=== PATIENT | female | born 2005 | race Caucasian/White ===

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

== ENCOUNTER 2023-10-10 16:48 | Emergency (ER) | payer MEDICAID ==
[~2023-10-10] VITALS: Ht 154.9 cm; Wt 33.0 kg
[2023-10-10 17:16] VITALS: BP 123/84; PULSE 90; RESP 16; TEMP 98.9; O2SAT 98
[2023-10-10 17:42] LABS: BILIRUBIN,URINE SMALL (Neg); CLARITY,URINE CLOUDY (Clear); COLOR,URINE YELLOW (Yellow); GLUCOSE, URINE NEGATIVE (Neg); KETONES,URINE NEGATIVE (Neg); LEUKOCYTE ESTERASE ,URINE NEGATIVE (Neg); NITRITES, URINE POSITIVE (Neg); OCCULT BLOOD,URINE LARGE (Neg); PH,URINE 6.5 (4.8-8.0); PROTEIN,URINE TRACE mg/dl (Neg); UROBILINOGEN,URINE 0.2 E.U/dL (0.2-1.0)
[2023-10-10 17:49] LABS: UA COLLECTION TYPE CLN CATCH MIDSTREAM
[2023-10-10 17:51] LABS: BACTERIA,URINE 2+ /HPF (Neg); RBC,URINE TNTC /HPF (0-2); SQUAMOUS EPITHELIAL CELL,UR MANY /LPF (FEW)
[2023-10-10 17:52] LABS: MUCUS STRANDS FEW /LPF (Neg)
[2023-10-10] MEDS ORDERED: DOXY100T29 PO (18:14)
[2023-10-10] MEDS: CefTRIAXone 1000mg IM Kit (w/lidocaine diluent) IM ONE (18:53)
[2023-10-10] MEDS: ibuprofen tablet 400 MG TABLET PO ONE (19:11)
== END 2023-10-10 19:46 | disposition home or self-care (01) ==
LOC: ER 16:49
DX: A64 Unspecified sexually transmitted disease (principal); F41.9 Anxiety disorder, unspecified; F10.10 Alcohol abuse, uncomplicated; Y90.9 Presence of alcohol in blood, level not specified
CPT/HCPCS: 36415; 81001; 87210; 87491; 87591; 96372; 99283; J0696

== ENCOUNTER 2024-04-26 17:32 | Emergency (ER) | payer MEDICAID ==
[~2024-04-26] VITALS: Ht 157.5 cm; Wt 40.0 kg
[~2024-04-26 17:32] MED LIST changes: +DOXY100T29 PO
[2024-04-26 17:34] VITALS: BP 97/52; PULSE 76; RESP 16; TEMP 99; O2SAT 98
[2024-04-26] MEDS ORDERED: AZIT2.5D5 LEFTEYE (18:22)
[2024-04-26] MEDS: proparacaine 0.5% ophthalmic drops 15ml EACHEYE ONE (18:35)
== END 2024-04-26 18:46 | disposition home or self-care (01) ==
LOC: ER 17:33
DX: S05.02XA Injury of conjunctiva and corneal abrasion without foreign body, left eye, initial encounter (principal); F32.A Depression, unspecified; Z79.2 Long term (current) use of antibiotics; Z79.899 Other long term (current) drug therapy; W55.01XA Bitten by cat, initial encounter; Y93.89 Activity, other specified; Y92.89 Other specified places as the place of occurrence of the external cause; Y99.8 Other external cause status
CPT/HCPCS: 99283

== ENCOUNTER 2024-09-08 12:34 | Emergency (ER) | payer MEDICAID ==
[~2024-09-08] VITALS: Ht 157.5 cm; Wt 43.9 kg
[2024-09-08 12:34] VITALS: TEMP 98.2
[~2024-09-08 12:34] MED LIST changes: +AZIT2.5D5 LEFTEYE
[2024-09-08] MEDS: acetaminophen 325mg tablet PO STA (15:26)
[2024-09-08] MEDS: fluconazole 150mg tablet PO STA (15:26)
[2024-09-08] MEDS: ketorolac trometh 15mg/ml vial 15 MG/ML ML IV STA (15:27)
[2024-09-08] MEDS ORDERED: DIF150T PO (15:42)
[2024-09-08] MEDS ORDERED: NYST30CR35 TOP (15:42)
[2024-09-08 15:47] VITALS: BP 114/68; PULSE 74; RESP 14; O2SAT 99
== END 2024-09-08 15:49 | disposition home or self-care (01) ==
LOC: ER 12:34
DX: B37.31 Acute candidiasis of vulva and vagina (principal); F32.A Depression, unspecified; F10.10 Alcohol abuse, uncomplicated; Y90.9 Presence of alcohol in blood, level not specified
CPT/HCPCS: 96374; 99283; J1885

== ENCOUNTER 2024-10-17 07:35 | Inpatient (IN) | payer MEDICAID ==
[~2024-10-17] VITALS: Ht 157.5 cm; Wt 45.0 kg
[~2024-10-17 07:35] MED LIST changes: +DIF150T PO; +NYST30CR35 TOP
[2024-10-17 10:42] LABS: BASOPHILS % (AUTO) 0.1 % (0-1); EOSINOPHILS # (AUTO) 0.1 X10'3 (0-0.9); HEMATOCRIT 29.2 % (35.0-45.0); HEMOGLOBIN 9.7 g/dl (12.0-16.0); LYMPHOCYTES # (AUTO) 2.5 X10'3 (1.1-4.8); LYMPHOCYTES % (AUTO) 47.7 % (21-51); MEAN CORPUSCULAR HGB CONC 33.4 g/dL (33.0-36.5); MEAN CORPUSCULAR VOLUME 95.9 FL (78-98); MEAN PLATELET VOLUME 6.3 FL (7.4-10.4); MONOCYTES # (AUTO) 0.3 X10'3 (0-0.9); MONOCYTES % (AUTO) 5.5 % (2-12); NEUTROPHILS # (AUTO) 2.4 X10'3 (1.8-7.7); NEUTROPHILS % (AUTO) 45.7 % (42-75); PLATELET COUNT 404 X10'3 (140-440); RED BLOOD COUNT 3.04 X10'6 (4.20-5.60); RED CELL DISTRIBUTION WIDTH 21.3 % (11.5-14.5); WHITE BLOOD COUNT 5.2 X10'3 (4.5-11.0)
[2024-10-17 11:02] LABS: ANISOCYTOSIS 3+; MICROCYTOSIS 1+; PLATELET ESTIMATE NORMAL
[2024-10-17 11:03] LABS: TEAR DROP CELLS FEW
[2024-10-17 11:11] LABS: ALANINE AMINOTRANSFERASE 72 U/L (12-78); ALBUMIN 3.5 G/DL (3.4-5.0); ALBUMIN/GLOBULIN RATIO 0.8 (1.1-1.5); ALKALINE PHOSPHATASE 56 IU/L (46-116); ANION GAP 14 (8-16); ASPARTATE AMINO TRANSFERASE 31 U/L (10-37); BILIRUBIN,TOTAL 0.3 MG/DL (0.1-1.0); BLOOD UREA NITROGEN 15 MG/DL (7-18); BUN/CREATININE RATIO 26.3 (10.0-20.0); CALCIUM 8.6 MG/DL (8.5-10.1); CHLORIDE 112 MMOL/L (99-107); CREATININE 0.57 MG/DL (0.40-0.90); POTASSIUM 3.2 MMOL/L (3.5-5.1); SODIUM 147 MMOL/L (135-145); TOTAL CARBON DIOXIDE 21.4 MMOL/L (24-32); TOTAL PROTEIN 7.7 G/DL (6.4-8.2); eCRCL 111 ML/MIN; eGFR > 90 ML/MIN
[2024-10-17 11:13] LABS: GLUCOSE 84 MG/DL (70-104)
[2024-10-17] MEDS: ketorolac trometh 15mg/ml vial 15 MG/ML ML IV ONE (11:56)
[2024-10-17] MEDS: diazepam inj 5 MG/ML inj. IV ONE (11:56)
[2024-10-17] MEDS: normal saline 1000ml 1,000 ML IV ONE (11:57)
[2024-10-17] MEDS ORDERED: acetaminophen 325mg tablet PO PRN (12:50)
[2024-10-17] MEDS ORDERED: haloperidol 5mg tablet PO PRN (12:50)
[2024-10-17] MEDS ORDERED: potassium Cl 20 mEq SR tablet PO PRN (12:50)
[2024-10-17] MEDS ORDERED: ondansetron/PF 4mg/2ml inj IV PRN (12:50)
[2024-10-17] MEDS ORDERED: potassium Cl 40MEQ/1/2NS 520ml 520 ML IV PRN (12:50)
[2024-10-17] MEDS ORDERED: mag hydrox/Alum hydrox/simeth 30ml oral suspension PO PRN (12:50)
[2024-10-17] MEDS ORDERED: magnesium sulf-water 2g/50mL 50 ML IV PRN (12:50)
[2024-10-17] MEDS ORDERED: dextrose 50%-water 50ml dispensing syringe IV PRN (12:50)
[2024-10-17] MEDS ORDERED: LORazepam 2 mg/ml vial IV PRN (12:50)
[2024-10-17] MEDS ORDERED: magnesium sulf-water 4G/100mL 100 ML IV PRN (12:50)
[2024-10-17] MEDS ORDERED: magnesium Cl slow-release 64mg tablet PO PRN (12:50)
[2024-10-17] MEDS: thiamine 100mg/ml 2ml inj. IV SCH (13:12)
[2024-10-17] MEDS: normal saline 1000ml 1,000 ML IV SCH (13:15)
[2024-10-17 13:23] LABS: INR 1.1 INR; PROTHROMBIN TIME 11.4 SECONDS (9.0-12.0)
[2024-10-17 13:36] LABS: HCG SERUM QL NEGATIVE
[2024-10-17] MEDS: folic acid 1mg/0.2ml inj IV SCH (14:43)
[2024-10-17 16:48] LABS: FERRITIN 212 NG/ML (8-252)
[2024-10-17] MEDS ORDERED: FLUO40CA PO (17:45)
[2024-10-17] MEDS ORDERED: HYDR50TA65 PO (17:45)
[2024-10-17 18:00] VITALS: BP 98/65; PULSE 91; RESP 12; TEMP 98.4; O2SAT 95
[2024-10-17 18:04] LABS: % IRON SATURATION 12 % (11-46); IRON 22 UG/DL (49-151); TOTAL IRON BINDING CAPACITY 181 UG/DL (259-388)
[2024-10-17] MEDS: K and/or MAG REPLACEMENT MC SCH (20:00)
[2024-10-17] MEDS: potassium Cl 20 mEq SR tablet PO PRN (21:44)
[2024-10-17 22:00] VITALS: BP 98/65; PULSE 91; RESP 12; TEMP 98.4; O2SAT 95
[2024-10-17] MEDS: cyanocobalamin 1,000 mcg/ml inj IM SCH (22:20)
[2024-10-18 01:29] LABS: BILIRUBIN,URINE NEGATIVE (Neg); CLARITY,URINE SLIGHTLY CLOUDY (Clear); COLOR,URINE YELLOW (Yellow); GLUCOSE, URINE NEGATIVE (Neg); KETONES,URINE NEGATIVE (Neg); LEUKOCYTE ESTERASE ,URINE SMALL (Neg); NITRITES, URINE NEGATIVE (Neg); OCCULT BLOOD,URINE NEGATIVE (Neg); PROTEIN,URINE NEGATIVE (Neg); UROBILINOGEN,URINE 0.2 E.U/dL (0.2-1.0)
[2024-10-18 01:34] LABS: UA COLLECTION TYPE NON-SPECIFIED
[2024-10-18 01:40] LABS: SQUAMOUS EPITHELIAL CELL,UR FEW /LPF (FEW)
[2024-10-18 01:41] LABS: BACTERIA,URINE 2+ /HPF (Neg); RBC,URINE NONE SEEN /HPF (0-2)
[2024-10-18 01:44] LABS: HYALINE CASTS 0-3 /LPF (NEGATIVE); TRICHOMONAS,URINE FEW /HPF (NEGATIVE)
[2024-10-18 01:45] LABS: URINE AMPHETAMINE SCREEN NEGATIVE (Neg); URINE BARBITUATE SCREEN NEGATIVE (Neg); URINE BENZODIAZEPINES SCREEN NEGATIVE (Neg); URINE CANNABINOID SCREEN POSITIVE (Neg); URINE COCAINE SCREEN NEGATIVE (Neg); URINE METHADONE SCREEN NEGATIVE (Neg); URINE OPIATE SCREEN POSITIVE (Neg); URINE PHENCYCLIDINE SCREEN NEGATIVE (Neg)
[2024-10-18 02:20] VITALS: BP 96/48; PULSE 94; RESP 22; TEMP 97.6; O2SAT 100
[2024-10-18] MEDS: acetaminophen 325mg tablet PO PRN (05:22)
[2024-10-18 05:57] LABS: BASOPHILS % (AUTO) 0.2 % (0-1); EOSINOPHILS % (AUTO) 0.9 % (0-6); HEMATOCRIT 25.7 % (35.0-45.0); HEMOGLOBIN 8.7 g/dl (12.0-16.0); LYMPHOCYTES # (AUTO) 3.2 X10'3 (1.1-4.8); LYMPHOCYTES % (AUTO) 60.9 % (21-51); MEAN CORPUSCULAR HEMOGLOBIN 32.4 PG (27.0-31.0); MEAN CORPUSCULAR VOLUME 95.3 FL (78-98); MEAN PLATELET VOLUME 6.4 FL (7.4-10.4); MONOCYTES # (AUTO) 0.4 X10'3 (0-0.9); MONOCYTES % (AUTO) 8.3 % (2-12); NEUTROPHILS # (AUTO) 1.6 X10'3 (1.8-7.7); NEUTROPHILS % (AUTO) 29.7 % (42-75); PLATELET COUNT 382 X10'3 (140-440); RED CELL DISTRIBUTION WIDTH 21.6 % (11.5-14.5); WHITE BLOOD COUNT 5.3 X10'3 (4.5-11.0)
[2024-10-18 06:00] VITALS: BP 108/67; PULSE 85; RESP 14; TEMP 97.3; O2SAT 99
[2024-10-18 06:34] LABS: ALBUMIN 2.7 G/DL (3.4-5.0); ANION GAP 9 (8-16); BLOOD UREA NITROGEN 10 MG/DL (7-18); BUN/CREATININE RATIO 21.7 (10.0-20.0); CALCIUM 7.7 MG/DL (8.5-10.1); CHLORIDE 116 MMOL/L (99-107); CREATININE 0.46 MG/DL (0.40-0.90); GLUCOSE 91 MG/DL (70-104); MAGNESIUM 1.7 MG/DL (1.5-2.4); POTASSIUM 3.2 MMOL/L (3.5-5.1); SODIUM 146 MMOL/L (135-145); TOTAL CARBON DIOXIDE 20.8 MMOL/L (24-32); eCRCL 137 ML/MIN; eGFR > 90 ML/MIN
[2024-10-18 06:52] LABS: ANISOCYTOSIS 3+; PLATELET ESTIMATE NORMAL; TOTAL CELLS COUNTED 100
[2024-10-18 06:54] LABS: TEAR DROP CELLS FEW
[2024-10-18] MEDS: FLUoxetine 20mg capsule PO SCH (07:03)
[2024-10-18] MEDS: multivitamins, therapeutics tablet PO SCH (07:03)
[2024-10-18] MEDS: pantoprazole 40mg Tablet.DR PO SCH (07:03)
[2024-10-18 08:00] VITALS: RESP 18; O2SAT 100
[2024-10-18 10:00] VITALS: BP 101/58; RESP 17; TEMP 98.2; O2SAT 100
[2024-10-18] MEDS: nystatin/triamcinolone cream 15gm TP SCH (12:19)
[2024-10-18] MEDS: gabapentin 300mg capsule PO SCH (17:20)
[2024-10-18 18:00] VITALS: BP 107/64; PULSE 101; RESP 17; TEMP 98.2; O2SAT 99
[2024-10-18 18:10] LABS: HEMATOCRIT 27.1 % (35.0-45.0); HEMOGLOBIN 9.2 g/dl (12.0-16.0); MEAN CORPUSCULAR HEMOGLOBIN 32.4 PG (27.0-31.0); MEAN CORPUSCULAR HGB CONC 33.8 g/dL (33.0-36.5); MEAN CORPUSCULAR VOLUME 95.6 FL (78-98); MEAN PLATELET VOLUME 6.2 FL (7.4-10.4); PLATELET COUNT 409 X10'3 (140-440); RED BLOOD COUNT 2.84 X10'6 (4.20-5.60); RED CELL DISTRIBUTION WIDTH 21.9 % (11.5-14.5); WHITE BLOOD COUNT 5.8 X10'3 (4.5-11.0)
[2024-10-18] MEDS: GADOTERATE MEGLUMINE 7.5 MMOL/15 ML VIAL IV ONE (19:03)
[2024-10-18] MEDS: CefTRIAXone/D5W-Rocephin 1gm 50 ML IV ONE (19:49)
[2024-10-18] MEDS: ringers solution, lacted 1,000 ML IV SCH (21:21)
[2024-10-19] VITALS (7 sets, daily range): BP systolic 93–114; BP diastolic 46–68; PULSE 71–92; RESP 14–20; TEMP 97.2–98.6; O2SAT 92–100
[2024-10-19 04:58] LABS: BASOPHILS % (AUTO) 0.1 % (0-1); HEMATOCRIT 25.3 % (35.0-45.0); HEMOGLOBIN 8.7 g/dl (12.0-16.0); MEAN CORPUSCULAR HGB CONC 34.3 g/dL (33.0-36.5); NEUTROPHILS # (AUTO) 1.6 X10'3 (1.8-7.7); RED CELL DISTRIBUTION WIDTH 21.9 % (11.5-14.5)
[2024-10-19 04:59] LABS: EOSINOPHILS % (AUTO) 0.6 % (0-6); LYMPHOCYTES # (AUTO) 3.1 X10'3 (1.1-4.8); LYMPHOCYTES % (AUTO) 54.1 % (21-51); MEAN CORPUSCULAR HEMOGLOBIN 32.9 PG (27.0-31.0); MEAN CORPUSCULAR VOLUME 95.9 FL (78-98); MEAN PLATELET VOLUME 6.2 FL (7.4-10.4); MONOCYTES % (AUTO) 17.9 % (2-12); NEUTROPHILS % (AUTO) 27.3 % (42-75); PLATELET COUNT 414 X10'3 (140-440); RED BLOOD COUNT 2.64 X10'6 (4.20-5.60); WHITE BLOOD COUNT 5.8 X10'3 (4.5-11.0)
[2024-10-19 05:10] LABS: ALBUMIN 2.9 G/DL (3.4-5.0); ANION GAP 5 (8-16); BLOOD UREA NITROGEN 5 MG/DL (7-18); CALCIUM 8.2 MG/DL (8.5-10.1); CHLORIDE 113 MMOL/L (99-107); GLUCOSE 96 MG/DL (70-104); MAGNESIUM 1.9 MG/DL (1.5-2.4); POTASSIUM 3.9 MMOL/L (3.5-5.1); SODIUM 145 MMOL/L (135-145); TOTAL CARBON DIOXIDE 27.2 MMOL/L (24-32); eCRCL 126 ML/MIN; eGFR > 90 ML/MIN
[2024-10-19 05:17] LABS: TOTAL CELLS COUNTED 100
[2024-10-19] MEDS: CefTRIAXone/D5W-Rocephin 1gm 50 ML IV SCH (07:56)
[2024-10-19 18:54] LABS: HEMATOCRIT 27.5 % (35.0-45.0); HEMOGLOBIN 9.3 g/dl (12.0-16.0); MEAN CORPUSCULAR HEMOGLOBIN 32.9 PG (27.0-31.0); MEAN CORPUSCULAR HGB CONC 33.9 g/dL (33.0-36.5); MEAN CORPUSCULAR VOLUME 96.9 FL (78-98); MEAN PLATELET VOLUME 6.1 FL (7.4-10.4); PLATELET COUNT 410 X10'3 (140-440); RED BLOOD COUNT 2.84 X10'6 (4.20-5.60); RED CELL DISTRIBUTION WIDTH 23.1 % (11.5-14.5); WHITE BLOOD COUNT 6.5 X10'3 (4.5-11.0)
[2024-10-19] MEDS: LORazepam 1 MG tablet PO PRN (21:52)
[2024-10-20 04:53] LABS: HEMOGLOBIN 9.3 g/dl (12.0-16.0); RED BLOOD COUNT 2.87 X10'6 (4.20-5.60)
[2024-10-20 04:55] LABS: HEMATOCRIT 27.7 % (35.0-45.0); MEAN CORPUSCULAR HEMOGLOBIN 32.6 PG (27.0-31.0); MEAN CORPUSCULAR HGB CONC 33.7 g/dL (33.0-36.5); MEAN CORPUSCULAR VOLUME 96.6 FL (78-98); PLATELET COUNT 405 X10'3 (140-440); RED CELL DISTRIBUTION WIDTH 22.8 % (11.5-14.5); WHITE BLOOD COUNT 7.2 X10'3 (4.5-11.0)
[2024-10-20 05:11] LABS: ALBUMIN 2.9 G/DL (3.4-5.0); BLOOD UREA NITROGEN 10 MG/DL (7-18); BUN/CREATININE RATIO 22.7 (10.0-20.0); CALCIUM 8.5 MG/DL (8.5-10.1); CREATININE 0.44 MG/DL (0.40-0.90); GLUCOSE 92 MG/DL (70-104); MAGNESIUM 2.1 MG/DL (1.5-2.4); SODIUM 145 MMOL/L (135-145); TOTAL CARBON DIOXIDE 32.7 MMOL/L (24-32); eCRCL 144 ML/MIN; eGFR > 90 ML/MIN
[2024-10-20 05:13] LABS: CHLAMYDIA TRACHOMATIS, NAA Negative (Negative)
[2024-10-20 05:17] LABS: NUCLEATED RED BLOOD CELLS 1 /100WBC (0-0); TOTAL CELLS COUNTED 100
[2024-10-20 05:22] LABS: ANION GAP 3 (8-16); CHLORIDE 109 MMOL/L (99-107)
[2024-10-20 06:00] VITALS: BP 93/58; PULSE 86; RESP 16; TEMP 98.8; O2SAT 96
[2024-10-20 08:00] VITALS: RESP 17; O2SAT 98
[2024-10-20 10:00] VITALS: BP 112/64; PULSE 97; RESP 16; TEMP 97.8; O2SAT 96
[2024-10-20 18:00] VITALS: BP 102/46; PULSE 75; RESP 17; TEMP 98.2; O2SAT 92
[2024-10-20] MEDS: LORazepam 1 MG tablet PO PRN (19:46)
[2024-10-20 20:00] VITALS: RESP 17; O2SAT 92
[2024-10-20] MEDS: haloperidol lactate 5mg/ml inj IM PRN (20:14)
[2024-10-21] VITALS (17 sets, daily range): BP systolic 96–109; BP diastolic 41–68; PULSE 66–119; RESP 13–18; TEMP 97.7–99.2; O2SAT 92–100
[2024-10-21 05:14] LABS: BASOPHILS % (AUTO) 0.1 % (0-1); HEMOGLOBIN 9.8 g/dl (12.0-16.0); MONOCYTES # (AUTO) 1.4 X10'3 (0-0.9)
[2024-10-21 05:16] LABS: EOSINOPHILS % (AUTO) 0.6 % (0-6); HEMATOCRIT 29.5 % (35.0-45.0); LYMPHOCYTES # (AUTO) 2.6 X10'3 (1.1-4.8); LYMPHOCYTES % (AUTO) 42.9 % (21-51); MEAN CORPUSCULAR HEMOGLOBIN 32.5 PG (27.0-31.0); MEAN CORPUSCULAR HGB CONC 33.3 g/dL (33.0-36.5); MEAN CORPUSCULAR VOLUME 97.6 FL (78-98); MEAN PLATELET VOLUME 6.2 FL (7.4-10.4); MONOCYTES % (AUTO) 22.6 % (2-12); NEUTROPHILS % (AUTO) 33.8 % (42-75); PLATELET COUNT 364 X10'3 (140-440); RED BLOOD COUNT 3.02 X10'6 (4.20-5.60); RED CELL DISTRIBUTION WIDTH 25.8 % (11.5-14.5)
[2024-10-21 05:17] LABS: FOLATE SERUM(FOLIC) >20.0 ng/mL (>3.0)
[2024-10-21 05:31] LABS: ALBUMIN 3.2 G/DL (3.4-5.0); ANION GAP 8 (8-16); BLOOD UREA NITROGEN 11 MG/DL (7-18); BUN/CREATININE RATIO 21.6 (10.0-20.0); CALCIUM 8.6 MG/DL (8.5-10.1); CHLORIDE 106 MMOL/L (99-107); CREATININE 0.51 MG/DL (0.40-0.90); GLUCOSE 79 MG/DL (70-104); MAGNESIUM 2.4 MG/DL (1.5-2.4); SODIUM 146 MMOL/L (135-145); eCRCL 124 ML/MIN; eGFR > 90 ML/MIN
[2024-10-21 06:29] LABS: TOTAL CELLS COUNTED 100
[2024-10-21 06:30] LABS: ANISOCYTOSIS 3+; PLATELET ESTIMATE NORMAL; SCHISTOCYTES FEW
[2024-10-21] MEDS ORDERED: diazepam inj 5 MG/ML inj. IV PRN (07:50)
[2024-10-21] MEDS: folic acid 1mg tablet PO SCH (08:24)
[2024-10-21] MEDS: midazolam 1 mg/ML 2ml injection ONE (18:54)
[2024-10-21] MEDS: fentaNYL/PF 50MCG/1 ML 2ML syringe ONE (18:56)
[2024-10-21 20:31] LABS: APPEARANCE,CSF CLEAR; CSF SUPERNATANT COLOR COLORLESS; CSF VOLUME 6 ML
[2024-10-21 20:32] LABS: CSF RBC 0 /CU MM (0); CSF WBC CT 2 /CU MM (0-5); TUBE# COUNTED 2
[2024-10-21 20:47] LABS: GLUCOSE,CSF 52 MG/DL (40-75); TOTAL PROTEIN,CSF 57 MG/DL (15-45)
[2024-10-22] MEDS: hydrOXYzine 25 MG tablet PO PRN (01:48)
[2024-10-22 02:00] VITALS: BP 104/53; PULSE 113; RESP 18; TEMP 98.1; O2SAT 97
[2024-10-22] MEDS: baclofen 10mg tablet PO PRN (03:01)
[2024-10-22 06:20] LABS: ALBUMIN 2.9 G/DL (3.4-5.0); ANION GAP 7 (8-16); BLOOD UREA NITROGEN 11 MG/DL (7-18); CALCIUM 8.2 MG/DL (8.5-10.1); CHLORIDE 109 MMOL/L (99-107); CREATININE 0.58 MG/DL (0.40-0.90); EOSINOPHILS # (AUTO) 0.1 X10'3 (0-0.9); GLUCOSE 133 MG/DL (70-104); HEMOGLOBIN 9.1 g/dl (12.0-16.0); MAGNESIUM 2.3 MG/DL (1.5-2.4); MEAN PLATELET VOLUME 6.7 FL (7.4-10.4); MONOCYTES # (AUTO) 1.5 X10'3 (0-0.9); POTASSIUM 4.2 MMOL/L (3.5-5.1); SODIUM 145 MMOL/L (135-145); TOTAL CARBON DIOXIDE 29.5 MMOL/L (24-32); WHITE BLOOD COUNT 5.9 X10'3 (4.5-11.0); eCRCL 109 ML/MIN; eGFR > 90 ML/MIN
[2024-10-22 06:24] LABS: BASOPHILS % (AUTO) 0.1 % (0-1); EOSINOPHILS % (AUTO) 1.1 % (0-6); HEMATOCRIT 27.9 % (35.0-45.0); LYMPHOCYTES # (AUTO) 2.1 X10'3 (1.1-4.8); MEAN CORPUSCULAR HEMOGLOBIN 32.3 PG (27.0-31.0); MEAN CORPUSCULAR HGB CONC 32.7 g/dL (33.0-36.5); MEAN CORPUSCULAR VOLUME 98.5 FL (78-98); MONOCYTES % (AUTO) 24.8 % (2-12); NEUTROPHILS # (AUTO) 2.3 X10'3 (1.8-7.7); PLATELET COUNT 348 X10'3 (140-440); RED BLOOD COUNT 2.83 X10'6 (4.20-5.60); RED CELL DISTRIBUTION WIDTH 24.5 % (11.5-14.5)
[2024-10-22 07:29] LABS: ANISOCYTOSIS 3+; PLATELET ESTIMATE NORMAL; TOTAL CELLS COUNTED 100
[2024-10-22 08:00] VITALS: RESP 18; O2SAT 99
[2024-10-22] MEDS ORDERED: cyanocobalamin 500mcg tablet PO SCH (08:00)
[2024-10-22] MEDS: thiamine 100mg tablet PO SCH (10:17)
[2024-10-22 14:00] VITALS: RESP 16
[2024-10-22 18:00] VITALS: BP_SYST 113; BP_SYST 99; BP_DIAS 58; BP_DIAS 64; PULSE 77; PULSE 95; RESP 15; RESP 20; TEMP 98.5; TEMP 98.8; O2SAT 97; O2SAT 99
[2024-10-22] MEDS: gabapentin 300mg capsule PO SCH (19:40)
[2024-10-22] MEDS: nicotine 7mg patch - 24hr TD SCH (19:41)
[2024-10-22 20:00] VITALS: RESP 20; O2SAT 99
[2024-10-22 22:00] VITALS: BP 113/64; PULSE 95; RESP 20; TEMP 98.5; O2SAT 99
[2024-10-22 23:30] LABS: BILIRUBIN,URINE NEGATIVE (Neg); CLARITY,URINE SLIGHTLY CLOUDY (Clear); COLOR,URINE YELLOW (Yellow); GLUCOSE, URINE NEGATIVE (Neg); KETONES,URINE NEGATIVE (Neg); LEUKOCYTE ESTERASE ,URINE LARGE (Neg); NITRITES, URINE NEGATIVE (Neg); OCCULT BLOOD,URINE NEGATIVE (Neg); PROTEIN,URINE NEGATIVE (Neg); UROBILINOGEN,URINE 0.2 E.U/dL (0.2-1.0)
[2024-10-22 23:49] LABS: UA COLLECTION TYPE CLN CATCH MIDSTREAM
[2024-10-22 23:50] LABS: RBC,URINE NONE SEEN /HPF (0-2)
[2024-10-22 23:51] LABS: BACTERIA,URINE FEW /HPF (Neg); SQUAMOUS EPITHELIAL CELL,UR MODERATE /LPF (FEW)
[2024-10-23] MEDS: phenazopyridine 100mg tablet PO ONE (03:43)
[2024-10-23 04:45] LABS: OCCULT BLOOD STOOL NEGATIVE (Neg)
[2024-10-23 06:00] VITALS: BP 110/60; PULSE 72; RESP 20; TEMP 98; O2SAT 98
[2024-10-23] MEDS ORDERED: nicotine 7mg patch - 24hr TD SCH (08:00)
[2024-10-23] MEDS ORDERED: cyanocobalamin 1,000 mcg/ml inj IM SCH (08:00)
[2024-10-23 08:35] VITALS: RESP 20; O2SAT 98
[2024-10-23 14:11] VITALS: BP 117/67; PULSE 95; RESP 16; TEMP 98.5
[2024-10-23] MEDS: polyethylene glycol 3350 17gm powd pack PO ONE (15:12)
[2024-10-23] MEDS: cyanocobalamin 500mcg tablet PO SCH (15:13)
[2024-10-23 18:00] VITALS: BP 108/59; PULSE 106; RESP 16; TEMP 97.8; O2SAT 98
[2024-10-23] MEDS: gabapentin 300mg capsule PO SCH (19:58)
[2024-10-23 20:00] VITALS: RESP 16; O2SAT 98
[2024-10-23 22:00] VITALS: BP 105/61; PULSE 80; RESP 18; TEMP 98.6; O2SAT 98
[2024-10-23] MEDS: ketorolac trometh 15mg/ml vial 15 MG/ML ML IV ONE (22:56)
[2024-10-24 05:00] VITALS: BP 103/54; PULSE 90; RESP 18; TEMP 98.3; O2SAT 96
[2024-10-24 05:57] LABS: BASOPHILS % (AUTO) 0.3 % (0-1); EOSINOPHILS # (AUTO) 0.1 X10'3 (0-0.9); EOSINOPHILS % (AUTO) 1.8 % (0-6); HEMATOCRIT 30.5 % (35.0-45.0); HEMOGLOBIN 9.9 g/dl (12.0-16.0); LYMPHOCYTES % (AUTO) 44.2 % (21-51); MEAN CORPUSCULAR HEMOGLOBIN 31.2 PG (27.0-31.0); MEAN CORPUSCULAR HGB CONC 32.3 g/dL (33.0-36.5); MEAN CORPUSCULAR VOLUME 96.6 FL (78-98); MEAN PLATELET VOLUME 6.6 FL (7.4-10.4); MONOCYTES % (AUTO) 14.3 % (2-12); NEUTROPHILS # (AUTO) 2.6 X10'3 (1.8-7.7); NEUTROPHILS % (AUTO) 39.4 % (42-75); PLATELET COUNT 366 X10'3 (140-440); RED BLOOD COUNT 3.16 X10'6 (4.20-5.60); RED CELL DISTRIBUTION WIDTH 21.8 % (11.5-14.5); WHITE BLOOD COUNT 6.7 X10'3 (4.5-11.0)
[2024-10-24 06:22] LABS: TOTAL CELLS COUNTED 100
[2024-10-24 06:23] LABS: ANISOCYTOSIS 3+; LARGE PLATELETS FEW; PLATELET ESTIMATE NORMAL
[2024-10-24 06:26] LABS: ALANINE AMINOTRANSFERASE 23 U/L (12-78); ALBUMIN 2.9 G/DL (3.4-5.0); ALBUMIN/GLOBULIN RATIO 0.7 (1.1-1.5); ALKALINE PHOSPHATASE 47 IU/L (46-116); ANION GAP 8 (8-16); ASPARTATE AMINO TRANSFERASE 17 U/L (10-37); BILIRUBIN,TOTAL 0.2 MG/DL (0.1-1.0); BLOOD UREA NITROGEN 7 MG/DL (7-18); BUN/CREATININE RATIO 14.9 (10.0-20.0); CALCIUM 8.7 MG/DL (8.5-10.1); CHLORIDE 107 MMOL/L (99-107); CREATININE 0.47 MG/DL (0.40-0.90); GLUCOSE 93 MG/DL (70-104); POTASSIUM 4.2 MMOL/L (3.5-5.1); SODIUM 143 MMOL/L (135-145); TOTAL CARBON DIOXIDE 27.7 MMOL/L (24-32); eCRCL 135 ML/MIN; eGFR > 90 ML/MIN
[2024-10-24 08:00] VITALS: RESP 12; O2SAT 97
[2024-10-24 11:00] VITALS: BP 95/56; PULSE 75; RESP 17; TEMP 98.8; O2SAT 97
[2024-10-24] MEDS: LIDOcaine 5% patch TP SCH (16:50)
[2024-10-24] MEDS: baclofen 10mg tablet PO PRN (17:14)
[2024-10-24] MEDS: magnesium hydroxide 30ml (MOM) UD suspension PO PRN (17:24)
[2024-10-24 18:00] VITALS: BP 110/65; PULSE 85; RESP 22; TEMP 98.2; O2SAT 97
[2024-10-24 20:00] VITALS: RESP 22; O2SAT 97
[2024-10-24] MEDS: polyethylene glycol 3350 17gm powd pack PO SCH (20:16)
[2024-10-24] MEDS: heparin, porcine 5000 units/ml vial SQ SCH (20:18)
[2024-10-24 22:00] VITALS: BP 101/65; PULSE 74; RESP 15; TEMP 98.7; O2SAT 98
[2024-10-24] MEDS: Melatonin 3mg tablet PO PRN (23:28)
[2024-10-24] MEDS: morphine 2 MG/ML inj. syringe IV ONE (23:30)
[2024-10-25 05:25] LABS: BASOPHILS % (AUTO) 0.3 % (0-1); EOSINOPHILS # (AUTO) 0.1 X10'3 (0-0.9); EOSINOPHILS % (AUTO) 1.2 % (0-6); HEMATOCRIT 31.1 % (35.0-45.0); HEMOGLOBIN 10.3 g/dl (12.0-16.0); LYMPHOCYTES # (AUTO) 3.3 X10'3 (1.1-4.8); LYMPHOCYTES % (AUTO) 34.8 % (21-51); MEAN CORPUSCULAR HEMOGLOBIN 31.6 PG (27.0-31.0); MEAN CORPUSCULAR VOLUME 95.9 FL (78-98); MEAN PLATELET VOLUME 6.5 FL (7.4-10.4); MONOCYTES # (AUTO) 1.3 X10'3 (0-0.9); MONOCYTES % (AUTO) 13.2 % (2-12); NEUTROPHILS # (AUTO) 4.8 X10'3 (1.8-7.7); NEUTROPHILS % (AUTO) 50.5 % (42-75); PLATELET COUNT 419 X10'3 (140-440); RED BLOOD COUNT 3.24 X10'6 (4.20-5.60); RED CELL DISTRIBUTION WIDTH 21.9 % (11.5-14.5); WHITE BLOOD COUNT 9.5 X10'3 (4.5-11.0)
[2024-10-25 06:00] VITALS: BP 100/58; PULSE 85; RESP 18; TEMP 98; O2SAT 98
[2024-10-25 06:10] LABS: ALANINE AMINOTRANSFERASE 23 U/L (12-78); ALBUMIN/GLOBULIN RATIO 0.7 (1.1-1.5); ALKALINE PHOSPHATASE 50 IU/L (46-116); ANION GAP 6 (8-16); ASPARTATE AMINO TRANSFERASE 14 U/L (10-37); BILIRUBIN,TOTAL 0.2 MG/DL (0.1-1.0); BLOOD UREA NITROGEN 9 MG/DL (7-18); BUN/CREATININE RATIO 18.8 (10.0-20.0); CALCIUM 8.8 MG/DL (8.5-10.1); CHLORIDE 106 MMOL/L (99-107); CREATININE 0.48 MG/DL (0.40-0.90); GLUCOSE 107 MG/DL (70-104); POTASSIUM 4.2 MMOL/L (3.5-5.1); SODIUM 143 MMOL/L (135-145); TOTAL CARBON DIOXIDE 30.7 MMOL/L (24-32); TOTAL PROTEIN 7.3 G/DL (6.4-8.2); eCRCL 132 ML/MIN; eGFR > 90 ML/MIN
[2024-10-25 08:00] VITALS: RESP 16; O2SAT 98
[2024-10-25 10:00] VITALS: BP 109/63; PULSE 83; RESP 16; TEMP 98.3; O2SAT 98
[2024-10-25] MEDS: gabapentin 300mg capsule PO ONE (15:42)
[2024-10-25] MEDS: cyanocobalamin 1,000 mcg/ml inj IM SCH (15:57)
[2024-10-25] MEDS: LIDOcaine 5% patch TP SCH (16:05)
[2024-10-25 18:00] VITALS: BP 118/66; PULSE 89; RESP 18; TEMP 99.2; O2SAT 99
[2024-10-25] MEDS: gabapentin 300mg capsule PO SCH (20:02)
[2024-10-25] MEDS: Melatonin 3mg tablet PO PRN (20:15)
[2024-10-25 22:00] VITALS: BP 103/63; PULSE 81; RESP 17; TEMP 99.3; O2SAT 98
[2024-10-26 04:51] LABS: BASOPHILS % (AUTO) 0.5 % (0-1); EOSINOPHILS # (AUTO) 0.1 X10'3 (0-0.9); HEMOGLOBIN 10.3 g/dl (12.0-16.0); LYMPHOCYTES # (AUTO) 3.4 X10'3 (1.1-4.8); MEAN CORPUSCULAR HEMOGLOBIN 30.8 PG (27.0-31.0); MEAN CORPUSCULAR HGB CONC 32.2 g/dL (33.0-36.5); MEAN CORPUSCULAR VOLUME 95.9 FL (78-98); MEAN PLATELET VOLUME 6.4 FL (7.4-10.4); MONOCYTES % (AUTO) 11.2 % (2-12); NEUTROPHILS # (AUTO) 4.8 X10'3 (1.8-7.7); NEUTROPHILS % (AUTO) 51.3 % (42-75); PLATELET COUNT 398 X10'3 (140-440); RED BLOOD COUNT 3.34 X10'6 (4.20-5.60); RED CELL DISTRIBUTION WIDTH 21.6 % (11.5-14.5); WHITE BLOOD COUNT 9.3 X10'3 (4.5-11.0)
[2024-10-26 05:17] LABS: ALANINE AMINOTRANSFERASE 18 U/L (12-78); ALBUMIN/GLOBULIN RATIO 0.7 (1.1-1.5); ALKALINE PHOSPHATASE 50 IU/L (46-116); ANION GAP 8 (8-16); ASPARTATE AMINO TRANSFERASE 13 U/L (10-37); BILIRUBIN,TOTAL 0.3 MG/DL (0.1-1.0); BLOOD UREA NITROGEN 6 MG/DL (7-18); CALCIUM 8.8 MG/DL (8.5-10.1); CHLORIDE 105 MMOL/L (99-107); GLUCOSE 91 MG/DL (70-104); POTASSIUM 4.1 MMOL/L (3.5-5.1); SODIUM 139 MMOL/L (135-145); TOTAL CARBON DIOXIDE 26.5 MMOL/L (24-32); TOTAL PROTEIN 7.4 G/DL (6.4-8.2); eCRCL 158 ML/MIN; eGFR > 90 ML/MIN
[2024-10-26 06:00] VITALS: BP 99/56; PULSE 64; RESP 14; TEMP 98.2; O2SAT 99
[2024-10-26 08:00] VITALS: RESP 14; O2SAT 99
[2024-10-26 10:00] VITALS: BP 122/71; PULSE 74; RESP 18; TEMP 98.4; O2SAT 99
[2024-10-26] MEDS: polyethylene glycol 3350 17gm powd pack PO ONE (11:42)
[2024-10-26 15:11] LABS: IMMUNOGLOBULIN G, QN CSF 2.2 mg/dL (0.0-6.7)
[2024-10-26 18:00] VITALS: BP 110/69; PULSE 77; RESP 14; TEMP 98.4; O2SAT 100
[2024-10-26] MEDS: docusate sod 100mg capsule PO SCH (20:44)
[2024-10-26] MEDS: morphine 2 MG/ML inj. syringe IV ONE (20:46)
[2024-10-26 22:00] VITALS: BP 105/59; PULSE 90; RESP 20; TEMP 98.5; O2SAT 97
[2024-10-27 06:00] VITALS: BP 96/49; PULSE 89; RESP 15; TEMP 98.6; O2SAT 98
[2024-10-27 06:28] LABS: BASOPHILS # (AUTO) 0.1 X10'3 (0-0.2); BASOPHILS % (AUTO) 0.7 % (0-1); EOSINOPHILS # (AUTO) 0.1 X10'3 (0-0.9); HEMATOCRIT 30.6 % (35.0-45.0); HEMOGLOBIN 10.1 g/dl (12.0-16.0); LYMPHOCYTES # (AUTO) 3.2 X10'3 (1.1-4.8); LYMPHOCYTES % (AUTO) 34.9 % (21-51); MEAN CORPUSCULAR HEMOGLOBIN 31.6 PG (27.0-31.0); MEAN CORPUSCULAR HGB CONC 32.9 g/dL (33.0-36.5); MEAN CORPUSCULAR VOLUME 95.9 FL (78-98); MEAN PLATELET VOLUME 6.9 FL (7.4-10.4); MONOCYTES # (AUTO) 1.2 X10'3 (0-0.9); MONOCYTES % (AUTO) 12.8 % (2-12); NEUTROPHILS # (AUTO) 4.6 X10'3 (1.8-7.7); NEUTROPHILS % (AUTO) 50.6 % (42-75); PLATELET COUNT 412 X10'3 (140-440); RED BLOOD COUNT 3.19 X10'6 (4.20-5.60); RED CELL DISTRIBUTION WIDTH 21.2 % (11.5-14.5); WHITE BLOOD COUNT 9.1 X10'3 (4.5-11.0)
[2024-10-27 07:31] LABS: ALANINE AMINOTRANSFERASE 22 U/L (12-78); ALBUMIN 2.8 G/DL (3.4-5.0); ALBUMIN/GLOBULIN RATIO 0.7 (1.1-1.5); ALKALINE PHOSPHATASE 49 IU/L (46-116); ANION GAP 9 (8-16); ASPARTATE AMINO TRANSFERASE 10 U/L (10-37); BILIRUBIN,TOTAL 0.2 MG/DL (0.1-1.0); BLOOD UREA NITROGEN 8 MG/DL (7-18); CALCIUM 8.4 MG/DL (8.5-10.1); CHLORIDE 106 MMOL/L (99-107); GLUCOSE 120 MG/DL (70-104); POTASSIUM 3.8 MMOL/L (3.5-5.1); SODIUM 141 MMOL/L (135-145); TOTAL CARBON DIOXIDE 26.5 MMOL/L (24-32); TOTAL PROTEIN 7.1 G/DL (6.4-8.2); eCRCL 158 ML/MIN; eGFR > 90 ML/MIN
[2024-10-27 10:00] VITALS: BP 129/89; PULSE 98; RESP 18; TEMP 97.9; O2SAT 97
[2024-10-27] MEDS: ibuprofen 200mg tablet PO PRN (12:34)
[2024-10-27] MEDS: polyethylene glycol 3350 17gm powd pack PO ONE (12:53)
[2024-10-27 22:00] VITALS: BP 116/62; PULSE 60; RESP 16; TEMP 98.2; O2SAT 93
[2024-10-28 05:36] LABS: BASOPHILS # (AUTO) 0.1 X10'3 (0-0.2); BASOPHILS % (AUTO) 1.2 % (0-1); EOSINOPHILS # (AUTO) 0.1 X10'3 (0-0.9); EOSINOPHILS % (AUTO) 1.5 % (0-6); HEMATOCRIT 30.2 % (35.0-45.0); HEMOGLOBIN 10.7 g/dl (12.0-16.0); LYMPHOCYTES # (AUTO) 3.1 X10'3 (1.1-4.8); LYMPHOCYTES % (AUTO) 34.8 % (21-51); MEAN CORPUSCULAR HEMOGLOBIN 34.4 PG (27.0-31.0); MEAN CORPUSCULAR HGB CONC 35.5 g/dL (33.0-36.5); MEAN CORPUSCULAR VOLUME 96.8 FL (78-98); MEAN PLATELET VOLUME 7.4 FL (7.4-10.4); MONOCYTES % (AUTO) 11.3 % (2-12); NEUTROPHILS # (AUTO) 4.6 X10'3 (1.8-7.7); NEUTROPHILS % (AUTO) 51.2 % (42-75); PLATELET COUNT 444 X10'3 (140-440); RED BLOOD COUNT 3.12 X10'6 (4.20-5.60); RED CELL DISTRIBUTION WIDTH 21.1 % (11.5-14.5); WHITE BLOOD COUNT 8.9 X10'3 (4.5-11.0)
[2024-10-28 05:43] LABS: TOTAL CARBON DIOXIDE 23.2 MMOL/L (24-32)
[2024-10-28 06:00] VITALS: BP 98/52; PULSE 111; RESP 16; TEMP 97.5; O2SAT 98
[2024-10-28 06:11] LABS: ALBUMIN 2.6 G/DL (3.4-5.0); ALKALINE PHOSPHATASE 57 IU/L (46-116); BLOOD UREA NITROGEN 9 MG/DL (7-18); BUN/CREATININE RATIO 19.1 (10.0-20.0); CREATININE 0.47 MG/DL (0.40-0.90); eCRCL 135 ML/MIN; eGFR > 90 ML/MIN
[2024-10-28 06:27] LABS: ANISOCYTOSIS 3+; PLATELET ESTIMATE INCREASED; POLYCHROMASIA 1+
[2024-10-28 06:29] LABS: ELLIPTOCYTES FEW; TEAR DROP CELLS FEW
[2024-10-28 06:39] LABS: ALANINE AMINOTRANSFERASE 38 U/L (12-78); ALBUMIN/GLOBULIN RATIO 0.6 (1.1-1.5); ANION GAP 10 (8-16); ASPARTATE AMINO TRANSFERASE 29 U/L (10-37); BILIRUBIN,TOTAL 0.1 MG/DL (0.1-1.0); CALCIUM 8.2 MG/DL (8.5-10.1); CHLORIDE 109 MMOL/L (99-107); GLUCOSE 114 MG/DL (70-104); POTASSIUM 3.9 MMOL/L (3.5-5.1); SODIUM 142 MMOL/L (135-145); TOTAL PROTEIN 6.7 G/DL (6.4-8.2)
[2024-10-28 18:03] VITALS: RESP 16; O2SAT 99
[2024-10-28] MEDS: magnesium oxide 400mg tablet PO SCH (20:53)
[2024-10-28 22:00] VITALS: BP 128/84; PULSE 64; RESP 20; TEMP 98.3; O2SAT 98
[2024-10-29 06:00] VITALS: BP 93/52; PULSE 71; RESP 20; TEMP 97.8; O2SAT 99
[2024-10-29] MEDS: bisacodyl 5mg tablet.DR PO PRN (12:23)
[2024-10-29 17:02] VITALS: RESP 16; O2SAT 98
[2024-10-29 20:00] VITALS: RESP 16; O2SAT 98
[2024-10-30 06:00] VITALS: BP 91/48; PULSE 68; RESP 20; TEMP 98.4; O2SAT 99
[2024-10-30 08:00] VITALS: RESP 18; O2SAT 97
[2024-10-30 09:05] LABS: BASOPHILS # (AUTO) 0.1 X10'3 (0-0.2); BASOPHILS % (AUTO) 0.4 % (0-1); EOSINOPHILS # (AUTO) 0.1 X10'3 (0-0.9); EOSINOPHILS % (AUTO) 0.5 % (0-6); HEMATOCRIT 32.9 % (35.0-45.0); HEMOGLOBIN 10.8 g/dl (12.0-16.0); LYMPHOCYTES # (AUTO) 1.9 X10'3 (1.1-4.8); LYMPHOCYTES % (AUTO) 8.7 % (21-51); MEAN CORPUSCULAR HEMOGLOBIN 31.2 PG (27.0-31.0); MEAN CORPUSCULAR VOLUME 94.5 FL (78-98); MEAN PLATELET VOLUME 6.9 FL (7.4-10.4); MONOCYTES # (AUTO) 2.1 X10'3 (0-0.9); MONOCYTES % (AUTO) 9.6 % (2-12); NEUTROPHILS # (AUTO) 18.1 X10'3 (1.8-7.7); NEUTROPHILS % (AUTO) 80.8 % (42-75); PLATELET COUNT 541 X10'3 (140-440); RED BLOOD COUNT 3.48 X10'6 (4.20-5.60); WHITE BLOOD COUNT 22.3 X10'3 (4.5-11.0)
[2024-10-30 09:13] LABS: ALANINE AMINOTRANSFERASE 62 U/L (12-78); ALBUMIN 3.3 G/DL (3.4-5.0); ALBUMIN/GLOBULIN RATIO 0.7 (1.1-1.5); ALKALINE PHOSPHATASE 60 IU/L (46-116); ANION GAP 11 (8-16); ASPARTATE AMINO TRANSFERASE 37 U/L (10-37); BILIRUBIN,TOTAL 0.5 MG/DL (0.1-1.0); BLOOD UREA NITROGEN 14 MG/DL (7-18); BUN/CREATININE RATIO 29.2 (10.0-20.0); CALCIUM 9.1 MG/DL (8.5-10.1); CHLORIDE 100 MMOL/L (99-107); CREATININE 0.48 MG/DL (0.40-0.90); GLUCOSE 104 MG/DL (70-104); POTASSIUM 4.4 MMOL/L (3.5-5.1); SODIUM 137 MMOL/L (135-145); TOTAL CARBON DIOXIDE 26.5 MMOL/L (24-32); eCRCL 132 ML/MIN; eGFR > 90 ML/MIN
[2024-10-30] MEDS: LORazepam 0.5 MG tablet PO PRN (10:43)
[2024-10-30] MEDS: CefTRIAXone/D5W-Rocephin 1gm 50 ML IV ONE (11:55)
[2024-10-30 12:00] VITALS: BP 99/47; PULSE 74; RESP 18; TEMP 97.9; O2SAT 99
[2024-10-30 18:00] VITALS: BP 97/52; PULSE 82; RESP 16; TEMP 98.1; O2SAT 99
[2024-10-30 21:57] LABS: BILIRUBIN,URINE NEGATIVE (Neg); CLARITY,URINE SLIGHTLY CLOUDY (Clear); COLOR,URINE YELLOW (Yellow); GLUCOSE, URINE NEGATIVE (Neg); KETONES,URINE NEGATIVE (Neg); LEUKOCYTE ESTERASE ,URINE SMALL (Neg); NITRITES, URINE NEGATIVE (Neg); OCCULT BLOOD,URINE NEGATIVE (Neg); PH,URINE 6.5 (4.8-8.0); PROTEIN,URINE NEGATIVE (Neg); UROBILINOGEN,URINE 0.2 E.U/dL (0.2-1.0)
[2024-10-30 22:00] VITALS: BP 96/50; PULSE 81; RESP 20; TEMP 98.4; O2SAT 98
[2024-10-30 22:02] LABS: UA COLLECTION TYPE STRAIGHT CATH
[2024-10-30 22:07] LABS: AMORPHOUS URATES 1+; BACTERIA,URINE NONE SEEN /HPF (Neg); RBC,URINE NONE SEEN /HPF (0-2); SQUAMOUS EPITHELIAL CELL,UR FEW /LPF (FEW); TRANSITIONAL EPI CELLS,URINE FEW /HPF
[2024-10-31 06:00] VITALS: BP 89/53; PULSE 73; RESP 16; TEMP 98.2; O2SAT 98
[2024-10-31 06:06] LABS: BASOPHILS # (AUTO) 0.1 X10'3 (0-0.2); BASOPHILS % (AUTO) 0.7 % (0-1); EOSINOPHILS # (AUTO) 0.2 X10'3 (0-0.9); HEMATOCRIT 32.7 % (35.0-45.0); HEMOGLOBIN 10.8 g/dl (12.0-16.0); LYMPHOCYTES # (AUTO) 3.1 X10'3 (1.1-4.8); LYMPHOCYTES % (AUTO) 31.2 % (21-51); MEAN CORPUSCULAR HEMOGLOBIN 31.5 PG (27.0-31.0); MEAN CORPUSCULAR HGB CONC 33.1 g/dL (33.0-36.5); MEAN CORPUSCULAR VOLUME 95.2 FL (78-98); MEAN PLATELET VOLUME 6.8 FL (7.4-10.4); MONOCYTES % (AUTO) 10.2 % (2-12); NEUTROPHILS # (AUTO) 5.6 X10'3 (1.8-7.7); NEUTROPHILS % (AUTO) 55.9 % (42-75); PLATELET COUNT 481 X10'3 (140-440); RED BLOOD COUNT 3.43 X10'6 (4.20-5.60)
[2024-10-31 06:32] LABS: ALANINE AMINOTRANSFERASE 55 U/L (12-78); ALBUMIN/GLOBULIN RATIO 0.7 (1.1-1.5); ALKALINE PHOSPHATASE 57 IU/L (46-116); ANION GAP 8 (8-16); ASPARTATE AMINO TRANSFERASE 31 U/L (10-37); BILIRUBIN,TOTAL 0.2 MG/DL (0.1-1.0); BLOOD UREA NITROGEN 13 MG/DL (7-18); BUN/CREATININE RATIO 32.5 (10.0-20.0); CALCIUM 8.7 MG/DL (8.5-10.1); CHLORIDE 104 MMOL/L (99-107); GLUCOSE 101 MG/DL (70-104); POTASSIUM 4.2 MMOL/L (3.5-5.1); SODIUM 139 MMOL/L (135-145); TOTAL CARBON DIOXIDE 26.8 MMOL/L (24-32); TOTAL PROTEIN 7.5 G/DL (6.4-8.2); eCRCL 158 ML/MIN; eGFR > 90 ML/MIN
[2024-10-31 08:00] VITALS: RESP 16; O2SAT 98
[2024-10-31] MEDS: CefTRIAXone/D5W-Rocephin 1gm 50 ML IV SCH (10:08)
[2024-10-31] MEDS: LORazepam 0.5 MG tablet PO PRN (10:49)
[2024-10-31 14:59] LABS: DISCLAIMER SEE COMMENTS NMOL/L
[2024-10-31 18:00] VITALS: BP 100/58; PULSE 91; RESP 18; TEMP 98.5; O2SAT 98
[2024-10-31] MEDS: metroNIDAZOLE 500mg tablet PO SCH (21:31)
[2024-10-31 22:00] VITALS: BP 94/49; PULSE 83; RESP 14; TEMP 98.3; O2SAT 99
[2024-11-01 05:33] LABS: BASOPHILS # (AUTO) 0.1 X10'3 (0-0.2); BASOPHILS % (AUTO) 1.3 % (0-1); EOSINOPHILS # (AUTO) 0.2 X10'3 (0-0.9); EOSINOPHILS % (AUTO) 1.8 % (0-6); HEMATOCRIT 33.4 % (35.0-45.0); HEMOGLOBIN 11.2 g/dl (12.0-16.0); LYMPHOCYTES # (AUTO) 3.5 X10'3 (1.1-4.8); LYMPHOCYTES % (AUTO) 36.4 % (21-51); MEAN CORPUSCULAR HEMOGLOBIN 31.6 PG (27.0-31.0); MEAN CORPUSCULAR HGB CONC 33.4 g/dL (33.0-36.5); MEAN CORPUSCULAR VOLUME 94.7 FL (78-98); MEAN PLATELET VOLUME 6.5 FL (7.4-10.4); MONOCYTES # (AUTO) 0.8 X10'3 (0-0.9); MONOCYTES % (AUTO) 8.7 % (2-12); NEUTROPHILS # (AUTO) 4.9 X10'3 (1.8-7.7); NEUTROPHILS % (AUTO) 51.8 % (42-75); PLATELET COUNT 524 X10'3 (140-440); RED BLOOD COUNT 3.53 X10'6 (4.20-5.60); RED CELL DISTRIBUTION WIDTH 20.4 % (11.5-14.5); WHITE BLOOD COUNT 9.5 X10'3 (4.5-11.0)
[2024-11-01 05:59] LABS: ALANINE AMINOTRANSFERASE 44 U/L (12-78); ALBUMIN 3.2 G/DL (3.4-5.0); ALBUMIN/GLOBULIN RATIO 0.7 (1.1-1.5); ALKALINE PHOSPHATASE 56 IU/L (46-116); ANION GAP 9 (8-16); ASPARTATE AMINO TRANSFERASE 18 U/L (10-37); BILIRUBIN,TOTAL 0.3 MG/DL (0.1-1.0); BLOOD UREA NITROGEN 15 MG/DL (7-18); BUN/CREATININE RATIO 30.6 (10.0-20.0); CHLORIDE 104 MMOL/L (99-107); CREATININE 0.49 MG/DL (0.40-0.90); GLUCOSE 106 MG/DL (70-104); POTASSIUM 4.2 MMOL/L (3.5-5.1); SODIUM 139 MMOL/L (135-145); TOTAL PROTEIN 7.7 G/DL (6.4-8.2); eCRCL 129 ML/MIN; eGFR > 90 ML/MIN
[2024-11-01 06:00] VITALS: BP 90/47; PULSE 70; RESP 15; TEMP 97.7; O2SAT 98
[2024-11-01 08:00] VITALS: RESP 15; O2SAT 98
[2024-11-01 09:40] LABS: TOTAL CELLS COUNTED 100
[2024-11-01 09:41] LABS: ANISOCYTOSIS 3+; PLATELET ESTIMATE INCREASED
[2024-11-01 10:00] VITALS: BP 106/50; PULSE 88; RESP 16; TEMP 97.6; O2SAT 93
[2024-11-01] MEDS: ketorolac trometh 15mg/ml vial 15 MG/ML ML IM PRN (14:23)
[2024-11-01] MEDS: normal saline 1000ml 1,000 ML IV SCH (17:55)
[2024-11-01 18:00] VITALS: BP 101/61; PULSE 84; RESP 16; TEMP 98.4; O2SAT 99
[2024-11-01 20:20] VITALS: RESP 14
[2024-11-01] MEDS: pantoprazole 40mg Tablet.DR PO SCH (21:16)
[2024-11-01 22:00] VITALS: BP 99/53; PULSE 92; RESP 16; TEMP 98.3; O2SAT 99
[2024-11-02 05:13] LABS: BASOPHILS # (AUTO) 0.1 X10'3 (0-0.2); BASOPHILS % (AUTO) 1.8 % (0-1); EOSINOPHILS # (AUTO) 0.1 X10'3 (0-0.9); HEMATOCRIT 31.6 % (35.0-45.0); HEMOGLOBIN 10.5 g/dl (12.0-16.0); LYMPHOCYTES # (AUTO) 3.2 X10'3 (1.1-4.8); MEAN CORPUSCULAR HEMOGLOBIN 31.5 PG (27.0-31.0); MEAN CORPUSCULAR HGB CONC 33.1 g/dL (33.0-36.5); MEAN CORPUSCULAR VOLUME 95.1 FL (78-98); MEAN PLATELET VOLUME 6.4 FL (7.4-10.4); MONOCYTES # (AUTO) 0.6 X10'3 (0-0.9); MONOCYTES % (AUTO) 8.5 % (2-12); NEUTROPHILS # (AUTO) 2.5 X10'3 (1.8-7.7); NEUTROPHILS % (AUTO) 38.7 % (42-75); PLATELET COUNT 504 X10'3 (140-440); RED BLOOD COUNT 3.33 X10'6 (4.20-5.60); RED CELL DISTRIBUTION WIDTH 20.1 % (11.5-14.5); WHITE BLOOD COUNT 6.5 X10'3 (4.5-11.0)
[2024-11-02 05:26] LABS: TOTAL CELLS COUNTED 100
[2024-11-02 05:27] LABS: ANISOCYTOSIS 2+; PLATELET ESTIMATE INCREASED
[2024-11-02 05:34] LABS: ALANINE AMINOTRANSFERASE 30 U/L (12-78); ALBUMIN 2.9 G/DL (3.4-5.0); ALBUMIN/GLOBULIN RATIO 0.7 (1.1-1.5); ALKALINE PHOSPHATASE 50 IU/L (46-116); ANION GAP 6 (8-16); ASPARTATE AMINO TRANSFERASE 14 U/L (10-37); BILIRUBIN,TOTAL 0.3 MG/DL (0.1-1.0); BLOOD UREA NITROGEN 11 MG/DL (7-18); BUN/CREATININE RATIO 26.2 (10.0-20.0); CALCIUM 8.6 MG/DL (8.5-10.1); CHLORIDE 109 MMOL/L (99-107); CREATININE 0.42 MG/DL (0.40-0.90); GLUCOSE 103 MG/DL (70-104); POTASSIUM 3.8 MMOL/L (3.5-5.1); SODIUM 141 MMOL/L (135-145); TOTAL CARBON DIOXIDE 25.8 MMOL/L (24-32); eCRCL 151 ML/MIN; eGFR > 90 ML/MIN
[2024-11-02 08:55] VITALS: BP 102/69; PULSE 75; RESP 16; TEMP 97.8; O2SAT 99
[2024-11-02 10:00] VITALS: BP 106/68; PULSE 65; RESP 17; TEMP 98.4; O2SAT 99
[2024-11-02] MEDS ORDERED: THIA100T70 PO (12:54)
[2024-11-02] MEDS ORDERED: CYAN-104 PO (12:54)
[2024-11-02] MEDS ORDERED: BAC10T PO (12:54)
[2024-11-02] MEDS ORDERED: gabapentin capsule PO (12:54)
[2024-11-02] MEDS ORDERED: FOLI0.4T14 PO (12:54)
[2024-11-02] MEDS ORDERED: LACT1CAP26 PO (12:55)
[2024-11-02] MEDS ORDERED: CEFD300C3 PO (12:55)
[2024-11-02] MEDS ORDERED: METR-159 PO (13:03)
== END 2024-11-02 15:45 | disposition home health service (06) | DRG 254 ==
LOC: ER 07:36 → ED HOLD 10:33 → SUR 3N 17:18
PROVIDERS: ADMIT Family Medicine; ATTEND Family Medicine
DX: K92.1 Melena (principal); E87.1 Hypo-osmolality and hyponatremia; D64.9 Anemia, unspecified; E87.6 Hypokalemia; N30.90 Cystitis, unspecified without hematuria; F17.290 Nicotine dependence, other tobacco product, uncomplicated; F41.9 Anxiety disorder, unspecified; F12.90 Cannabis use, unspecified, uncomplicated; F32.A Depression, unspecified; R26.2 Difficulty in walking, not elsewhere classified; F19.10 Other psychoactive substance abuse, uncomplicated; K59.00 Constipation, unspecified
CPT/HCPCS: 36415; 62328; 70551; 71045; 72141; 72146; 72157; 72158; 74018; 80048; 80053; 80305; 81001; 82040; 82042; 82272; 82607; 82728; 82746; 82784; 82945; 82948; 83090; 83540; 83550; 83690; 83735; 83916; 83921; 84145; 84157; 84484; 84703; 85007; 85008; 85025; 85027; 85610; 85651; 86038; 87015; 87070; 87081; 87088; 87491; 89051; 96361; 96374; 96375; 97110; 97112; 97161; 97530; 97535; 99285; A4314; A4615; A4649; A5200; A6258; A6446; C1758; G0378; J0696; J1630; J1644; J1885; J2250; J2270; J3010; J3360; J3411; J3420; J3490; J7030; J7120; Q0177

== ENCOUNTER 2025-05-22 22:12 | Inpatient (IN) | payer MEDICAID ==
[~2025-05-22] VITALS: Ht 157.5 cm; Wt 45.0 kg
[~2025-05-22 22:12] MED LIST changes: +BACL-145 PO; +CYAN-104 PO; -DIF150T PO; -DOXY100T29 PO; +FLUO40CA PO; +FOLI0.4T3 PO; +HYDR50TA65 PO; +LACT1CAP26 PO; -NITR100C6 PO; -NYST30CR35 TOP; +NYST30CR46 TOP; +THIA100T70 PO; +gabapentin capsule PO
--- NOTE | 2025-05-22 23:13 | Physician Documentation ---
History of Present Illness General Chief Complaint: Back Pain Stated Complaint: UNABLE TO WALK Time Seen by MD: 23:08 Primary Medical Doctor: [facility] History of Present Illness Initial Comments 19-year-old female brought into the emergency department due to inability to walk. He has past medical history of excessive with the use requiring hospitalization. Discharged to continue with B12 injections the patient as he elected not do continue with B12 injections. She has been intermittently cont inue to use with it is where she had a once or twice a week she reports. Initially was up walking and doing quite well until just recently specifically 2-3 days ago has been unable to get out of bed. Reports spasticity to her lower extremity he is to include locking. She reports he has been dragging herself or house having someone transfer her to the commode. No recent illness other than reported, no trauma and/or fever no bladder incontinence. Medication Reconciliation Allergies: Coded Allergies: No Known Allergies (Unverified , 06/03/20) Scheduled Azithromycin (Azasite), 1 DROP LEFTEYE TID Cyanocobalamin (Vitamin B-12), 1 TAB PO DAILY Esomeprazole Magnesium (Nexium 24Hr), 1 CAP PO DAILY Fluoxetine Hcl (Fluoxetine Hcl), 1 CAP PO QAM, (Reported) Folic Acid (FOLIC ACID tablet), 1 TAB PO DAILY Lactobacillus Rhamnosus (Culturelle), 1 CAP PO DAILY Nystatin/Triamcin Cream* (Mycolog Cream*), 1 APPLIC TOP Q12H Ondansetron Hcl (Zofran), 1 TAB PO Q8H Thiamine Mononitrate (Vitamin B-1), 1 TAB PO DAILY [gabapentin capsule], 300 MG PO BID Scheduled PRN Acetaminophen (Acetaminophen), 1 TAB PO TID PRN PRN for pain Baclofen (Baclofen), 5 MG PO Q8H PRN for muscle spasms Hydroxyzine HCl (Hydroxyzine HCl), 1-2 TAB PO QID PRN for anxiety, (Reported) Past Medical History Past Medical History: Allergic Rhinitis, UTI, Depression Past Surgical History: no surgical history Alcohol Use: Abuse Drug Use: none Lives with: Family Lives In: Home Review of Systems All Other Systems at this time: Reviewed and Negative Constitutional: Denies: fever, chills Musc: Reports: back pain Neuro: Reports: weakness, numbness, tingling Physical Exam Physical Exam Vital Signs: RN Vital Signs have been reviewed: Yes, Temperature: 98.2, Source: Temporal, Heart Rate: 99, Respiratory Rate: 18, BP: 156/78, Pulse Oximetry: 100, Weight: 45.000 Oxygen Flow Rate: 0 General Appearance: alert, WD/WN, mild distress Head: normal inspection Face: normal inspection Pupils/EOM/Fundus: PERRLA Neck: non-tender Respiratory: no respiratory distress Chest: no accessory muscle use Cardiovascular: normal peripheral pulses Extremities: other (See below) Neurologic: oriented x4 Motor / Sensory: sensory deficit, other (Hyperreflexia lower extremities) Psychiatric: normal mood/affect, agitation Skin: normal color Progress Results/Orders Results/Orders Orders - EDGAR GUERRIER PAC Cbc/Diff (05/22/25 23:13) CMP (05/22/25 23:13) Vitamin B12 (05/22/25 23:13) Urinalysis (05/22/25 23:13) Drug Screen, Urine (05/22/25 23:13) Hcg, Ur Ql (05/22/25 23:13) * Iv Access / Saline Lock * (05/22/25 23:13) Cyanocobalamin Tablet (Vitamin B-12 Tabl (05/22/25 23:15) Completed Orders - EDGAR GUERRIER PAC Baclofen Tablet (Lioresal Tablet) (05/22/25 23:13) Vital Signs 05/22/25 05/22/25 05/22/25 22:21 23:10 23:15 Temp 98.2 Pulse 99 101 Resp 18 16 16 B/P (MAP) 156/78 112/64 (80) Pulse Ox 100 100 O2 Flow Rate 0 0 Medical Decision Making Additional information obtaine: old records Findings 19-year-old female recent hospitalization due to nitrous oxide overuse. Patient presents due to recent N2O use and last used 2-3 days now inability to ambulate. Warrants admission to the hospital for evaluation laboratory screening and MRI imaging for evaluation of worsening disease and sustained follow up and medication compliance at discharge. Laboratory screening for B12, urine tox and baseline screening. Patient will be provided Baclofen for antispasmodic and 1000 mg of B12 awaiting hospitalist consultation for consideration of admission. Differential Diagnosis Differentials include yet not likely cauda equina, diskitis epidural abscess. Working diagnosis of nitrous oxide excessive use without vitamin B12 supplementation may represent a risk for a subacute combined demyelinization. Departure Disposition: 09 ADMITTED INPATIENT Impression: Primary Impression: Nitrous oxide user Additional Impressions: Subacute combined degeneration Inability to walk Referrals: NO PRIMARY CARE PROVIDER (PCP) Signature Scribe Signature: . Attestation: . EDGAR GUERRIER [facility] May 22, 2025 23:13
[2025-05-22] MEDS: cyanocobalamin 500mcg tablet PO SCH (23:33)
[2025-05-22 23:54] LABS: MEAN PLATELET VOLUME 6.5 FL (7.4-10.4); RED CELL DISTRIBUTION WIDTH 18.0 % (11.5-14.5)
[2025-05-23] MEDS ORDERED: potassium Cl 20 mEq SR tablet PO PRN
[2025-05-23] MEDS ORDERED: potassium Cl 40MEQ/1/2NS 520ml 520 ML IV PRN
[2025-05-23] MEDS ORDERED: magnesium Cl slow-release 64mg tablet PO PRN
[2025-05-23] MEDS ORDERED: magnesium sulf-water 4G/100mL 100 ML IV PRN
[2025-05-23] MEDS ORDERED: magnesium sulf-water 2g/50mL 50 ML IV PRN
[2025-05-23] MEDS ORDERED: mag hydrox/Alum hydrox/simeth 30ml oral suspension PO PRN
[2025-05-23 00:06] LABS: CREATININE 0.57 MG/DL (0.40-0.90); TOTAL CARBON DIOXIDE 28.9 MMOL/L (24-32); eCRCL 111 ML/MIN; eGFR > 90 ML/MIN
--- NOTE | 2025-05-23 00:28 | HISTORY AND PHYSICAL-Residence ---
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 After that she was able to walk by herself three months later. She also stopped taking vitamin B12 both injections and tablets. However for the past 2-3 months she said she has been using nitrous oxide/week feeds again using 240 mg once in 2-3 days. And for the past three days she noticed difficulty in walking and ataxia. He is also complaining of numbness and tingling sensation of all extremities lower more than upper. Denies urinary incontinence or bowel incontinence or constipation. Denies fever. Denies any recent history of cold however she stated she had few episodes of diarrhea week ago. Allergies: Coded Allergies: No Known Allergies (Unverified , 06/03/20) Home Medications Home Medications Active Culturelle (Lactobacillus Rhamnosus) 10 Billion Cell Capsule 1 Cap PO DAILY 30 Days Vitamin B-1 (Thiamine Mononitrate) 100 Mg Tablet 1 Tab PO DAILY 30 Days FOLIC ACID tablet (Folic Acid) 0.4 Mg Tablet 1 Tab PO DAILY 30 Days Vitamin B-12 (Cyanocobalamin) 1,000 Mcg Tablet 1 Tab PO DAILY 30 Days Baclofen 10 Mg Tablet 5 Mg PO Q8H PRN 10 Days FALL RISK [gabapentin capsule] 300 MG Capsule 300 Mg PO BID 30 Days Mycolog Cream* (Nystatin/Triamcinolone Acetonide) 100,000 Unit/Gram-0.1 % Cream.gm. 1 Applic TOP Q12H apply to affected area(s) Azasite (Azithromycin) 1 % Drops 1 Drop LEFTEYE TID 7 Days Zofran (Ondansetron Hcl) 4 Mg Tablet 1 Tab PO Q8H 10 Days Acetaminophen 325 Mg Tablet 1 Tab PO TID PRN PRN 6 Days Nexium 24Hr (Esomeprazole Magnesium) 20 Mg Capsule.dr 1 Cap PO DAILY Reported Hydroxyzine HCl 50 Mg Tablet 1-2 Tab PO QID PRN Fluoxetine Hcl 40 Mg Capsule 1 Cap PO QAM Past Medical History Past Medical History History of whippits use associated with vitamin B12 deficiency and subacute combined degeneration in October 2024 Anemia Past Surgical History Surgical History Comment None Family History Family History: Patient reports no known family medical history. Past Social History Social History Comment She vapes, smokes weed, drinks about 1-2 beers per day Has been using nitrous oxide for the past three months Lives by herself Alcohol Use: Abuse Drug Use: None Lives with: Family Lives In: Home ROS All Other Systems: Reviewed and Negative ROS ROS Constitutional: No fever, dizziness, weakness. no change in appetite/weight HEENT: No blurring of the vision, No sore throat, epistaxis, tinnitus Cardiovascular: No chest pain/discomfort, palpitations, syncope. No pedal edema Respiratory: No sob, cough,, hemoptysis Gastrointestinal: No abdominal pain, nausea, vomiting. No diarrhea, constipation, complaining of blood in stools while defecation Genitourinary: No frquency, urgency, incontinence, nocturia. No dysuria, hematuria Musculoskeletal: No arthralgia, myalgia Endocrine: No fatigue, polydipsia, polyuria. No heat or cold intolerance Neurologic: Positive for weakness of lower extremities, tingling and numbness of all extremities Psychiatric: No hallucinations/delusions, no anhedonia, no suicidal ideation\ Hematologic: No bleeding or bruises Reviewed in full. All negative except for pertinent positives in HPI Exam Vitals: Vital Signs Date Time Temp Pulse Resp B/P (MAP) Pulse Ox O2 Delivery O2 Flow Rate FiO2 05/22/25 23:15 16 05/22/25 23:10 101 100 0 05/22/25 22:21 98.2 General: General: Female, AAO x4, not in apparent distress Head: Normocephalic with an atraumatic Eyes: Pupils- 3mm, reacting to light, conjunctiva- anicteric Nose and throat: No polyps, septum- normal, no mucosal ulcers Neck: Supple, no lymphadenopathy, no carotid bruit Respiratory: No use of accessory muscles of respiration, Bilateral normal vesiscular breath sounds heard. No wheeze, rhochi or creps Cardiac: S1-S2 heard, rythm regular, no gallop/murmur Abdomen: non distended, no tenderness, no organomegaly, bowel sounds- heard Extremities: no clubbing, no pedal edema, no deformities, peripheral pulses- 2+ Skin: warm and dry, no rash, no purpura Neuro: tone Normal to decreased in all extremities Power- 4 x 5 in both upper extremity 4 x 5 in right lower extremity and 4- by five in left lower extremity DTRs-absent Plantar-no response Sensations decreased in bilateral lower extremities up to knee Signs of coordination like finger-nose test normal no dysdiadochokinesia Gait not performed Diagnostic Data Last Recorded Lab Results: 05/22/25233105/22/252331 Counseling Services Smoking & Tobacco Cessation: > 10 Minutes (Patient is given counseling regarding the harmful effects of vaping including but not limited to vaping associated lung injury) Advance Care Planning Advanced Care plannin - 30 Minutes (Code status is discussed with her and she opted for full code) Additional Plan 19-year-old female with 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 cyanocobalamin 200 mcg once daily -physical therapy History of vaping History of cannabis use -patient is counseled regarding the harmful effects of vaping Mild hypokalemia -K-3.4 -replacement per protocol Code Status: Full code Line/tube: PIV DVT prophylaxis: Lovenox Nutrition: Regular diet PT: Yes Prognosis: Guarded Disposition: Continue care in neuro floor Monse Topete MD IM PGY-3 resident Date of Service: May 23, 2025 Billing Provider: ZACHERY STAHL MD Addendum I agree with the residents assessment and plan as below: 19 year old female admitted with bilateral LE weakness Plan: LP and CSF analysis MRI brain MRI spine vitamin b12 level restart im and po b12 CCT 59 min using HIPPA compliant A/V technology PUTTAM,HARIVARSHA, RES May 23, 2025 00:28 ZACHERY STAHL MD May 23, 2025 04:06
[2025-05-23] MEDS: potassium Cl 20 mEq SR tablet PO PRN (01:29)
[2025-05-23] MEDS ORDERED: NO HOME MEDS (01:40)
[2025-05-23 01:44] LABS: HCG SERUM QL NEGATIVE
--- NOTE | 2025-05-23 02:29 | [facility] CONSULT REPORT ---
[facility] Procedure Note [facility] Procedure Note Consult [facility] Note # Demographics Consult Type: General Neurology Patient Location: Inpatient First Name: Libby Last Name: Edin Date of : 2005 Age: 19 Gender: Female Facility: [facility] Time of Initial Page (): 05/23/2025 00:59 First Contact with Site (): 05/23/2025 01:02 # HPI Chief Complaint: - weakness (focal) History: 19 yo female presents to the hospital with c/o bilateral leg weakness. Associated with numbness. Last known normal was 2 days ago. Pt is a poor historian and is unable to provide any history. States that she had similar complaints in November 2024. She has a h/o N2O abuse and B12 weakness. Apparently, she started abusing it again a week ago. # Scores Time of exam and NIHSS (): 05/23/2025 02:02 Level of Consciousness 1a: [1] = Not alert; but arousable by minor stim LOC Questions 1b: [0] = Answers both questions correctly LOC Commands 1c: [0] = Performs both tasks correctly Best Gaze 2: [0] = Normal Visual 3: [0] = No visual loss Facial Palsy 4: [0] = Normal symmetrical movements Motor Arm Left 5a: [0] = No drift Motor Arm Right 5b: [0] = No drift Motor Leg Left 6a: [1] = Drift Motor Leg Right 6b: [1] = Drift Limb Ataxia 7: [0] = Absent Sensory 8: [0] = Normal Best Language 9: [0] = No aphasia Dysarthria 10: [0] = Normal Extinction and Inattention 11: [0] = No abnormality NIHSS Total: 3 # Assessment Impression: - Weakness Differential Diagnosis: - Myelopathy - Guillain [place] - Multiple Sclerosis Transverse myelitis CVST # Plan Thrombolytic/Intervention: NOT IV Thrombolysis or IA Intervention candidate Thrombolytic Exclusion: > 4.5 hours Intraarterial Exclusion: - clinically not consistent with stroke Modified [place] Scale (mRS) pre-stroke: [0] = No symptoms at all. Target Blood Pressure: - SBP 130-150 Labs: - B12 - CBC - comprehensive metabolic panel - hemoglobin A1c - urine drug screen - ua - lipid panel - TSH - thiamine folic acid Imaging: (urgency: routine): - MRI Brain with AND without contrast - MRI C spine - MRI T spine - MRI L spine Diagnostic Test: - Lumbar puncture: cell count, protein, glucose, gram stain, and culture DVT Prophylaxis: - SCD Other: - If patient has any neurological deterioration please call me back immediately - I have discussed my recommendations with the referring provider - neurology referral as outpatient Disposition: admit # Logistics Attestation of consult completion: The patient is located at: [facility]. Facility staff participated in the visit. I performed this telemedicine visit from my offsite office utilizing interactive 2 way audio and visual telecommunication technology at the request of the onsite inpatient provider. Total time spent in telemedicine encounter: I spent 40 minutes reviewing clinic al data and/or imaging, obtaining history, examining the patient, communicating with the onsite care team, and in preparation of this report. # Demographics First Name: Libby Last Name: Edin Facility: [facility] Electronically signed at 05/23/2025 02:21 ([place] Time) by Jean Munoz MD Neuro Consult Order placed for: Yes JEAN MUNOZ III, MDOct 2024 02:29
[2025-05-23 07:06] VITALS: BP 89/54; PULSE 94; RESP 15; TEMP 97.4; O2SAT 99
[2025-05-23] MEDS ORDERED: enoxaparin 40mg/0.4ml syringe SUBCUT SCH (08:00)
[2025-05-23] MEDS: K and/or MAG REPLACEMENT MC SCH (08:00)
[2025-05-23 08:29] LABS: CHOL/HDL RATIO 2.7 (0.00-4.99); LDL CHOLESTEROL 59 MG/DL (50-100)
[2025-05-23] MEDS: docusate sod 100mg capsule PO SCH (08:59)
[2025-05-23 10:00] VITALS: BP 79/50; PULSE 80; RESP 14; TEMP 97.8; O2SAT 100
[2025-05-23] MEDS: ringers solution, lacted 1,000 ML IV ONE (12:30)
[2025-05-23] MEDS: ringers solution, lacted 1,000 ML IV SCH (13:36)
[2025-05-23 14:40] LABS: LEUKOCYTE ESTERASE ,URINE TRACE (Neg); NITRITES, URINE POSITIVE (Neg); OCCULT BLOOD,URINE NEGATIVE (Neg)
[2025-05-23 14:46] LABS: UA COLLECTION TYPE NON-SPECIFIED
[2025-05-23 14:47] LABS: AMORPHOUS URATES 1+; SQUAMOUS EPITHELIAL CELL,UR FEW /LPF (FEW)
[2025-05-23 14:55] LABS: URINE AMPHETAMINE SCREEN POSITIVE (Neg); URINE BARBITUATE SCREEN NEGATIVE (Neg); URINE BENZODIAZEPINES SCREEN NEGATIVE (Neg); URINE CANNABINOID SCREEN POSITIVE (Neg); URINE COCAINE SCREEN NEGATIVE (Neg); URINE METHADONE SCREEN NEGATIVE (Neg); URINE OPIATE SCREEN NEGATIVE (Neg); URINE PHENCYCLIDINE SCREEN NEGATIVE (Neg)
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
[2025-05-23 18:00] VITALS: BP 94/48; PULSE 105; RESP 12; TEMP 97.2; O2SAT 98
[2025-05-23] MEDS: cyanocobalamin 500mcg tablet PO ONE (20:45)
[2025-05-23 22:00] VITALS: BP 93/50; PULSE 94; RESP 16; TEMP 96.4; O2SAT 100
[2025-05-24 04:16] LABS: MEAN PLATELET VOLUME 6.8 FL (7.4-10.4); RED CELL DISTRIBUTION WIDTH 17.8 % (11.5-14.5)
[2025-05-24 04:33] LABS: CREATININE 0.41 MG/DL (0.40-0.90); TOTAL CARBON DIOXIDE 28.2 MMOL/L (24-32); eCRCL 154 ML/MIN; eGFR > 90 ML/MIN
[2025-05-24 06:00] VITALS: BP 105/55; PULSE 52; RESP 16; TEMP 97.3; O2SAT 94
[2025-05-24] MEDS ORDERED: LIDO1ADH58 TOP (08:36)
[2025-05-24] MEDS ORDERED: DOCU-391 PO (08:36)
[2025-05-24] MEDS ORDERED: THIA100T66 PO (08:36)
[2025-05-24] MEDS ORDERED: PANT20TA18 PO (08:36)
[2025-05-24] MEDS ORDERED: BACL10TA2 PO (08:36)
[2025-05-24] MEDS ORDERED: GABA300C PO (08:58)
[2025-05-24] MEDS ORDERED: OLAN2.5T77 PO (08:58)
[2025-05-24] MEDS ORDERED: HYDR-3686 PO (09:01)
[2025-05-24] MEDS: CefTRIAXone/D5W-Rocephin 1gm 50 ML IV SCH (09:28)
[2025-05-24] MEDS: ringers solution, lactated 500ml IV solution IV ONE (09:29)
[2025-05-24 10:30] VITALS: BP 101/49; PULSE 78; RESP 14; TEMP 98.6; O2SAT 98
[2025-05-24] MEDS: midodrine tablet 2.5 MG TABLET PO SCH (13:46)
[2025-05-24] MEDS: diazepam inj 5 MG/ML inj. IV ONE (16:31)
--- NOTE | 2025-05-24 17:57 | RADIOLOGY REPORT ---
PROCEDURE: MR MRI HEAD Indication: quadriperesis COMPARISON: MR MRI HEAD on DOS: 10/19/24, CT CT HEAD on DOS: 10/17/24 TECHNIQUE: Multiplanar multisequence images of the brain are obtained. FINDINGS: There is no abnormal diffusion restriction. There is no intracranial hemorrhage. No extra-axial fluid collection, mass effect or midline shift. The ventricles are midline and normal in size. The cisterns are patent. Normal intracranial flow voids are preserved. No abnormal susceptibility signal. Mastoids well pneumatized. 1 cm left maxillary sinus mucosal retention cyst/ polyp The visualized orbits are unremarkable. IMPRESSION: No acute cerebrovascular ischemia.
--- NOTE | 2025-05-24 18:02 | PROGRESS NOTE ---
Daily Progress Note Providers to CC ~ had an episode of anxiety today otherwise doing fine resting comfortably in the bed Central Line/PICC still needed: No Rojas-Non Protocol Rojas Indications Met/Not Met: F/C Indications Not Met Antibiotic Timeout Antibiotic Ordered?: Yes MRSA Education MRSA Education Provided to pt: Yes Subjective As above Objective Vital Signs Date Time Temp Pulse Resp B/P (MAP) Pulse Ox O2 Delivery O2 Flow Rate FiO2 05/24/25 16:31 14 05/24/25 10:30 98.6 78 101/49 (66) 98 Room Air 05/23/25 05:28 0 Vital signs, stable ,afebrile. Pulse Oximetry reflects adequate oxygenation. General: well developed, well nourished. Awake , alert, and oriented x4, resting comfortably in the bed, in no acute distress . Skin: Warm, dry, no pallor, no rash or petechiae. HEENT: Atraumatic, normocephalic, EOMI, anicteric sclera B; pink conjunctiva; PERRLA, normal oropharynx, moist oral and nasal mucosa. Tympanic membrane , nose , throat clear. Neck: Trachea midline. Supple, full range of motion, no JVD, bruit , hepatojugular reflex , lymphadenopathy or masses, or other lesions Cardiac: Regular rhythm, regular rate no murmurs, rubs, or gallops. Normal S1 and S2, no S3 noticed. PMI is normal. Respiratory: Equal breath sounds bilaterally, no tachypnea; lungs clear to auscultation bilaterally, no wheezing ,rub or rales, or crackles. Chest wall is symmetric and without deformity. No signs of trauma. Chest wall is nontender. No signs of respiratory distress. Resonance is normal upon percussion bilaterally. Gastrointestinal: Abdomen symmetric, non-distended, soft, non-tender, normal bowel sounds x4 quadrant, normoactive, no hepatosplenomegaly , no masses , no bruit, no flank pain bilaterally. No voluntary guarding, rebound, or rigidity. No tenderness to percussion. No pulsatile masses. Equal femoral pulses. No Londono's sign or McBurney point tenderness. Back; no CVA tenderness bilaterally, no deformities. Neck and back are without deformity as well. No tenderness noted on palpation of the spinous processes. Spinous processes are midline. Cervical, thoracic, and lumbar paraspinal muscles are not tender and are without spasm. Musculoskeletal: Extremities, normal range of motion, non-tender, muscle strength 5/5 x 4. Negative Homans signs bilaterally on lower extremity. Distal pulses full symmetrical, no clubbing, cyanosis , edema. Neurological: Speech is clear, alert, and oriented x 4. No motor or sensory deficit, deep tendon reflexes normal, cerebellar intact. Cranial nerves II-XII intact. Psych: Alert and or appropriate, normal affect. Vascular: Good distal pulses, which are equal x4; capillary refill less than 2 seconds. Lymphatic, no lymphadenopathy. 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 cyanocobalamin 200 mcg once daily -physical therapy History of vaping History of cannabis use -patient is counseled regarding the harmful effects of vaping Mild hypokalemia -K-3.4 -replacement per protocol Code Status: Full code Line/tube: PIV DVT prophylaxis: Lovenox Nutrition: Regular diet PT: Yes LP and CSF analysis MRI brain MRI spine vitamin b12 level restart im and po b12 Interventional radiologist awaiting for MRI results before proceeding with lumbar puncture Sepsis Screening Reassessment Date: May 24, 2025 Date of Service: May 24, 2025 Billing Provider: TEETEE CAMPOS MD Common Visit Codes: [id number] INP/OBS CARE(HIGH) TEETEE CAMPOS MD May 24, 2025 18:02
--- NOTE | 2025-05-24 18:04 | RADIOLOGY REPORT ---
PROCEDURE: MR MRI C SPINE Indication: b/l lower limb weakness COMPARISON: MR MRI C SPINE on DOS: 10/17/24 TECHNIQUE: Multiplanar multisequence images of the the cervical spine are obtained. FINDINGS: The cervical vertebral body heights are maintained. Mild to moderate multilevel disc space narrowing with desiccation. No prevertebral edema. Atlantooccipital, atlantoaxial articulations intact. C2-3: No spinal canal or neural foraminal stenosis. C3-4: No spinal canal, neural foraminal stenosis. C4-5: No spinal canal, neural foraminal stenosis. C5-6: Small disc osteophyte complex. No spinal canal stenosis. Mild right neural foraminal stenosis. C6-7: No spinal canal stenosis. Moderate right neural foraminal stenosis. C7-T1: No spinal canal stenosis. [id number] right neural foraminal stenosis. m right cervical jugulodigastric lymph node measuring 10 mm. Left cervical jugulodigastric lymph node measuring 11 mm. Left posterior cervical triangle lymph node measuring 7 mm. IMPRESSION: [id number] cervical degenerative disc disease. Xrex-to-yjypgpta right neural foraminal stenosis at C5-6, C6-7 and C7-T1 as described above. No high-grade spinal canal stenosis. Scattered prominent bilateral cervical jugulodigastric lymph nodes as described which can be secondary to infectious, inflammatory, neoplastic etiologies.
--- NOTE | 2025-05-24 18:06 | RADIOLOGY REPORT ---
PROCEDURE: MR MRI LUMBAR SPINE Indication: quadriperesis COMPARISON: MR MRI LUMBAR SPINE on DOS: 10/18/24 TECHNIQUE: Multiplanar multisequence images of the the lumbar spine are obtained. FINDINGS: For the purpose of this examination, there are 5 lumbar vertebral body types counting from the lumbosacral junction. Lumbar heights maintained. Mild multilevel disc space narrowing. No abnormal marrow edema. Conus terminates at the level of the L1-2 disc space level. L1-2: Tiny disc protrusion. Mild facet and flavum hypertrophy. No spinal canal stenosis. L2-3: Tiny disc protrusion. Mild facet and flavum hypertrophy. No spinal canal, neural foraminal stenosis. L3-4: No spinal canal, neural foraminal stenosis. Mild facet and flavum hypertrophy. L4-5: No significant disc protrusion. Mild facet and flavum hypertrophy. No spinal canal, neural foraminal stenosis. L5-S1: 2 mm disc protrusion. Mild facet and flavum hypertrophy. No spinal canal, neural foraminal stenosis. Small amount of free pelvic fluid. IMPRESSION: Mild lumbar degenerative disc disease. No significant spinal canal or neural foraminal stenosis. Small amount of free pelvic fluid which may be physiologic.
--- NOTE | 2025-05-24 18:35 | RADIOLOGY REPORT ---
EXAM: MR MRI THORACIC SPINE INDICATION: b/l lower limb weakness TECHNIQUE: Multiplanar, multisequence imaging of the thoracic spine without contrast. COMPARISON: MR MRI C SPINE on DOS: 05/24/25 FINDINGS: [ANATOMY]: Normal alignment of the thoracic spine. [BONES]: The vertebral bodies are normal in height, alignment, and marrow signal. [CORD]: Normal cord signal. [SPINAL CANAL]: No significant spinal canal narrowing. [INTERVERTEBRAL DISCS]: Diffuse disc desiccation. [FACETS]: Normal alignment of the facets. [FORAMINA]: No significant foraminal narrowing. [OTHER]: The visualized paraspinal soft tissues are unremarkable. IMPRESSION: 1. No significant MR abnormality of the thoracic spine.
[2025-05-24 19:10] VITALS: BP 99/50; PULSE 67; RESP 14; TEMP 98; O2SAT 99
[2025-05-24] MEDS: GADOTERATE MEGLUMINE 7.5 MMOL/15 ML VIAL IV ONE (21:08)
[2025-05-24 22:00] VITALS: BP 99/58; PULSE 88; RESP 16; TEMP 98.3; O2SAT 97
[2025-05-25] VITALS (10 sets, daily range): BP systolic 90–111; BP diastolic 40–66; PULSE 62–100; RESP 15–18; TEMP 97.3–98.4; O2SAT 98–100
[2025-05-25 04:42] LABS: MEAN PLATELET VOLUME 6.4 FL (7.4-10.4); RED CELL DISTRIBUTION WIDTH 18.2 % (11.5-14.5)
[2025-05-25 04:59] LABS: CREATININE 0.36 MG/DL (0.40-0.90); TOTAL CARBON DIOXIDE 30.2 MMOL/L (24-32); eCRCL 176 ML/MIN; eGFR > 90 ML/MIN
[2025-05-25] MEDS: diazepam inj 5 MG/ML inj. IV ONE (10:46)
[2025-05-25 12:21] LABS: TOTAL PROTEIN,CSF 49 MG/DL (15-45)
--- NOTE | 2025-05-25 12:27 | PROGRESS NOTE ---
Progress Note - Angio Providers to CC ~ Angio Progress Note: Lumbar puncture performed after explanation of risks benefits alt. Time out performed. Single puncture LP with 10cc of clear csf obtained. 4 hrs bedrest. No complications, EBL zero. Dictated. EDGAR NAVARRO MD May 25, 2025 12:27
[2025-05-25 12:32] LABS: APPEARANCE,CSF CLEAR; CSF SUPERNATANT COLOR COLORLESS; CSF VOLUME 11.5 ML
[2025-05-25 12:33] LABS: CSF WBC CT 2 /CU MM (0-5); TUBE# COUNTED 1
[2025-05-25 12:36] LABS: CSF RBC 369 /CU MM (0)
--- NOTE | 2025-05-25 15:46 | RADIOLOGY REPORT ---
Lumbar puncture for diagnosis History: 19-year-old with history of substance abuse. Recent vitamin B12 deficiency. Walking disturbance. Procedure: 1. Fluoroscopically guided lumbar puncture at the L3-4 level. Estimated blood loss: None Complication: None immediate Medication: 3 cc Lidocaine 1% subcutaneous; Fluoroscopy time: 0.3 minutes with dose of 3 mGy. Findings/technique: Written informed consent was obtained from the patient following a thorough discussion of the risks, alternatives, and benefits of the procedure. All questions were answered appropriately and thoroughly. The patient was placed in the prone position on the fluoroscopy table. The lower back was prepped and draped in standard sterile fashion using maximum sterile barrier technique. A timeout was performed prior to preprocedure. Lidocaine 1% was infiltrated into the skin and soft tissues overlying the L3-4 level. A 22-gauge needle was then advanced under fluoroscopic guidance to the expected location of the thecal sac at the L3-4 level. A total of approximately 11.5 mL of clear cerebrospinal fluid was drained. The needle was removed and manual pressure was held until hemostasis was obtained. Impression: Successful and uncomplicated fluoroscopically guided lumbar puncture at the L3-4 level. Total of approximately 11.5 mL of cerebrospinal fluid was drained
--- NOTE | 2025-05-25 17:42 | PROGRESS NOTE ---
Daily Progress Note Providers to CC Feels fine today awaiting to go to an procedure LP ~ Central Line/PICC still needed: No Rojas-Non Protocol Rojas Indications Met/Not Met: F/C Indications Not Met Antibiotic Timeout Antibiotic Ordered?: Yes MRSA Education MRSA Education Provided to pt: Yes Subjective As above Objective Vital Signs Date Time Temp Pulse Resp B/P (MAP) Pulse Ox O2 Delivery O2 Flow Rate FiO2 05/25/25 14:27 85 15 98 05/25/25 13:27 98.4 108/58 (75) Room Air 05/25/25 08:00 0.0 Vital signs, stable ,afebrile. Pulse Oximetry reflects adequate oxygenation. General: well developed, well nourished. Awake , alert, and oriented x4, resting comfortably in the bed, in no acute distress . Skin: Warm, dry, no pallor, no rash or petechiae. HEENT: Atraumatic, normocephalic, EOMI, anicteric sclera B; pink conjunctiva; PERRLA, normal oropharynx, moist oral and nasal mucosa. Tympanic membrane , nose , throat clear. Neck: Trachea midline. Supple, full range of motion, no JVD, bruit , hepatojugular reflex , lymphadenopathy or masses, or other lesions Cardiac: Regular rhythm, regular rate no murmurs, rubs, or gallops. Normal S1 and S2, no S3 noticed. PMI is normal. Respiratory: Equal breath sounds bilaterally, no tachypnea; lungs clear to auscultation bilaterally, no wheezing ,rub or rales, or crackles. Chest wall is symmetric and without deformity. No signs of trauma. Chest wall is nontender. No signs of respiratory distress. Resonance is normal upon percussion bilaterally. Gastrointestinal: Abdomen symmetric, non-distended, soft, non-tender, normal bowel sounds x4 quadrant, normoactive, no hepatosplenomegaly , no masses , no bruit, no flank pain bilaterally. No voluntary guarding, rebound, or rigidity. No tenderness to percussion. No pulsatile masses. Equal femoral pulses. No Londono's sign or McBurney point tenderness. Back; no CVA tenderness bilaterally, no deformities. Neck and back are without deformity as well. No tenderness noted on palpation of the spinous processes. Spinous processes are midline. Cervical, thoracic, and lumbar paraspinal muscles are not tender and are without spasm. Musculoskeletal: Extremities, normal range of motion, non-tender, muscle strength 5/5 x 4. Negative Homans signs bilaterally on lower extremity. Distal pulses full symmetrical, no clubbing, cyanosis , edema. Neurological: Speech is clear, alert, and oriented x 4. No motor or sensory deficit, deep tendon reflexes normal, cerebellar intact. Cranial nerves II-XII intact. Psych: Alert and or appropriate, normal affect. Vascular: Good distal pulses, which are equal x4; capillary refill less than 2 seconds. Lymphatic, no lymphadenopathy. 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 cyanocobalamin 200 mcg once daily -physical therapy History of vaping History of cannabis use -patient is counseled regarding the harmful effects of vaping Mild hypokalemia -K-3.4 -replacement per protocol Code Status: Full code Line/tube: PIV DVT prophylaxis: Lovenox Nutrition: Regular diet PT: Yes LP and CSF analysis, performed completed MRI brain MRI spine vitamin b12 level restart im and po b12 Interventional radiologist awaiting for MRI results before proceeding with lumbar puncture Sepsis Screening Reassessment Date: May 25, 2025 Date of Service: May 25, 2025 Billing Provider: TEETEE CAMPOS MD Common Visit Codes: [id number] INP/OBS CARE(HIGH) TEETEE CAMPOS MD May 25, 2025 17:42
[2025-05-26] VITALS (8 sets, daily range): BP systolic 82–94; BP diastolic 26–64; PULSE 82–101; RESP 15–18; TEMP 97.9–98.3; O2SAT 97–100
[2025-05-26] MEDS ORDERED: normal saline 500ml IV soln 500 ML IV ONE (06:05)
[2025-05-26 07:07] LABS: MEAN PLATELET VOLUME 6.7 FL (7.4-10.4); RED CELL DISTRIBUTION WIDTH 18.4 % (11.5-14.5)
[2025-05-26 07:18] LABS: CREATININE 0.38 MG/DL (0.40-0.90); TOTAL CARBON DIOXIDE 28.5 MMOL/L (24-32); eCRCL 166 ML/MIN; eGFR > 90 ML/MIN
[2025-05-26 07:40] LABS: BASOPHILS % (MANUAL) 1.0 % (0-1); EOSINOPHILS % (MANUAL) 1.0 % (0-6); LYMPHOCYTES % (MANUAL) 64.0 % (21-51); MONOCYTES % (MANUAL) 9.0 % (2-12); NEUTROPHILS % (MANUAL) 25.0 % (42-75); PLATELET ESTIMATE NORMAL
[2025-05-26] MEDS: normal saline 250ml IV soln 250 ML IV ONE (12:50)
--- NOTE | 2025-05-26 16:32 | PROGRESS NOTE ---
Daily Progress Note Providers to CC Feels better today, patient continue PT treatment ~ Central Line/PICC still needed: No Rojas-Non Protocol Rojas Indications Met/Not Met: F/C Indications Not Met Antibiotic Timeout Antibiotic Ordered?: Yes MRSA Education MRSA Education Provided to pt: Yes Subjective As above Objective Vital Signs Date Time Temp Pulse Resp B/P (MAP) Pulse Ox O2 Delivery O2 Flow Rate FiO2 05/26/25 11:34 101 94/57 (69) 05/26/25 10:00 98.1 16 98 Room Air 05/26/25 08:00 0.0 Vital signs, stable ,afebrile. Pulse Oximetry reflects adequate oxygenation. General: well developed, well nourished. Awake , alert, and oriented x4, resting comfortably in the bed, in no acute distress . Skin: Warm, dry, no pallor, no rash or petechiae. HEENT: Atraumatic, normocephalic, EOMI, anicteric sclera B; pink conjunctiva; PERRLA, normal oropharynx, moist oral and nasal mucosa. Tympanic membrane , nose , throat clear. Neck: Trachea midline. Supple, full range of motion, no JVD, bruit , hepatojugular reflex , lymphadenopathy or masses, or other lesions Cardiac: Regular rhythm, regular rate no murmurs, rubs, or gallops. Normal S1 and S2, no S3 noticed. PMI is normal. Respiratory: Equal breath sounds bilaterally, no tachypnea; lungs clear to auscultation bilaterally, no wheezing ,rub or rales, or crackles. Chest wall is symmetric and without deformity. No signs of trauma. Chest wall is nontender. No signs of respiratory distress. Resonance is normal upon percussion bilaterally. Gastrointestinal: Abdomen symmetric, non-distended, soft, non-tender, normal bowel sounds x4 quadrant, normoactive, no hepatosplenomegaly , no masses , no bruit, no flank pain bilaterally. No voluntary guarding, rebound, or rigidity. No tenderness to percussion. No pulsatile masses. Equal femoral pulses. No Londono's sign or McBurney point tenderness. Back; no CVA tenderness bilaterally, no deformities. Neck and back are without deformity as well. No tenderness noted on palpation of the spinous processes. Spinous processes are midline. Cervical, thoracic, and lumbar paraspinal muscles are not tender and are without spasm. Musculoskeletal: Extremities, normal range of motion, non-tender, muscle strength 5/5 x 4. Negative Homans signs bilaterally on lower extremity. Distal pulses full symmetrical, no clubbing, cyanosis , edema. Neurological: Speech is clear, alert, and oriented x 4. No motor or sensory deficit, deep tendon reflexes normal, cerebellar intact. Cranial nerves II-XII intact. Psych: Alert and or appropriate, normal affect. Vascular: Good distal pulses, which are equal x4; capillary refill less than 2 seconds. Lymphatic, no lymphadenopathy. 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 cyanocobalamin 200 mcg once daily -physical therapy Chronic amphetamine abuse including currently, Acute amphetamine intoxication Chronic alcohol abuse including currently Acute alcohol intoxication Alcohol withdrawal syndrome History of vaping History of cannabis use -patient is counseled regarding the harmful effects of vaping Mild hypokalemia -K-3.4 -replacement per protocol Code Status: Full code Line/tube: PIV DVT prophylaxis: Lovenox Nutrition: Regular diet PT: Yes LP and CSF analysis, performed completed MRI brain MRI spine vitamin b12 level restart im and po b12 MRI of the head, lumbar puncture completed Continue PT treatment Sepsis Screening Reassessment Date: May 26, 2025 Date of Service: May 26, 2025 Billing Provider: TEETEE CAMPOS MD Common Visit Codes: [id number] INP/OBS CARE(HIGH) TEETEE CAMPOS MD May 26, 2025 16:32
[2025-05-26] MEDS: ondansetron/PF 4mg/2ml inj IV PRN (19:19)
[2025-05-27 01:40] LABS: URINE AMPHETAMINE SCREEN NEGATIVE (Neg); URINE BARBITUATE SCREEN NEGATIVE (Neg); URINE BENZODIAZEPINES SCREEN POSITIVE (Neg); URINE CANNABINOID SCREEN POSITIVE (Neg); URINE COCAINE SCREEN NEGATIVE (Neg); URINE METHADONE SCREEN NEGATIVE (Neg); URINE OPIATE SCREEN NEGATIVE (Neg); URINE PHENCYCLIDINE SCREEN NEGATIVE (Neg)
[2025-05-27 06:00] VITALS: BP 97/51; PULSE 94; RESP 15; TEMP 97.6; O2SAT 99
[2025-05-27 06:45] LABS: MEAN PLATELET VOLUME 6.8 FL (7.4-10.4); RED CELL DISTRIBUTION WIDTH 18.0 % (11.5-14.5)
[2025-05-27 07:03] LABS: CREATININE 0.26 MG/DL (0.40-0.90); TOTAL CARBON DIOXIDE 26.8 MMOL/L (24-32); eCRCL 243 ML/MIN; eGFR > 90 ML/MIN
[2025-05-27 07:34] LABS: BANDS% (MANUAL) 2.0 % (0-10); EOSINOPHILS % (MANUAL) 3.0 % (0-6); LYMPHOCYTES % (MANUAL) 42.0 % (21-51); MONOCYTES % (MANUAL) 20.0 % (2-12); NEUTROPHILS % (MANUAL) 33.0 % (42-75); PLATELET ESTIMATE NORMAL
[2025-05-27 08:00] VITALS: RESP 15; O2SAT 94
[2025-05-27 10:00] VITALS: BP 98/43; PULSE 101; RESP 14; TEMP 97.3; O2SAT 96
[2025-05-27] MEDS: magnesium hydroxide 30ml (MOM) UD suspension PO PRN (16:51)
--- NOTE | 2025-05-27 17:12 | PROGRESS NOTE ---
Daily Progress Note Providers to CC ~ better today better sleep better appetite able to walk around the bed Central Line/PICC still needed: No Rojas-Non Protocol Rojas Indications Met/Not Met: F/C Indications Not Met Antibiotic Timeout Antibiotic Ordered?: Yes MRSA Education MRSA Education Provided to pt: Yes Subjective As above Objective Vital Signs Date Time Temp Pulse Resp B/P (MAP) Pulse Ox O2 Delivery O2 Flow Rate FiO2 05/27/25 10:00 97.3 101 14 98/43 (61) 96 Room Air 05/26/25 20:00 0.0 Vital signs, stable ,afebrile. Pulse Oximetry reflects adequate oxygenation. General: well developed, well nourished. Awake , alert, and oriented x4, resting comfortably in the bed, in no acute distress . Skin: Warm, dry, no pallor, no rash or petechiae. HEENT: Atraumatic, normocephalic, EOMI, anicteric sclera B; pink conjunctiva; PERRLA, normal oropharynx, moist oral and nasal mucosa. Tympanic membrane , nose , throat clear. Neck: Trachea midline. Supple, full range of motion, no JVD, bruit , hepatojugular reflex , lymphadenopathy or masses, or other lesions Cardiac: Regular rhythm, regular rate no murmurs, rubs, or gallops. Normal S1 and S2, no S3 noticed. PMI is normal. Respiratory: Equal breath sounds bilaterally, no tachypnea; lungs clear to auscultation bilaterally, no wheezing ,rub or rales, or crackles. Chest wall is symmetric and without deformity. No signs of trauma. Chest wall is nontender. No signs of respiratory distress. Resonance is normal upon percussion bilaterally. Gastrointestinal: Abdomen symmetric, non-distended, soft, non-tender, normal bowel sounds x4 quadrant, normoactive, no hepatosplenomegaly , no masses , no bruit, no flank pain bilaterally. No voluntary guarding, rebound, or rigidity. No tenderness to percussion. No pulsatile masses. Equal femoral pulses. No Londono's sign or McBurney point tenderness. Back; no CVA tenderness bilaterally, no deformities. Neck and back are without deformity as well. No tenderness noted on palpation of the spinous processes. Spinous processes are midline. Cervical, thoracic, and lumbar paraspinal muscles are not tender and are without spasm. Musculoskeletal: Extremities, normal range of motion, non-tender, muscle strength 5/5 x 4. Negative Homans signs bilaterally on lower extremity. Distal pulses full symmetrical, no clubbing, cyanosis , edema. Neurological: Speech is clear, alert, and oriented x 4. No motor or sensory deficit, deep tendon reflexes normal, cerebellar intact. Cranial nerves II-XII intact. Psych: Alert and or appropriate, normal affect. Vascular: Good distal pulses, which are equal x4; capillary refill less than 2 seconds. Lymphatic, no lymphadenopathy. 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 cyanocobalamin 200 mcg once daily -physical therapy Chronic amphetamine abuse including currently, Acute amphetamine intoxication Chronic alcohol abuse including currently Acute alcohol intoxication Alcohol withdrawal syndrome History of vaping History of cannabis use -patient is counseled regarding the harmful effects of vaping Mild hypokalemia -K-3.4 -replacement per protocol Code Status: Full code Line/tube: PIV DVT prophylaxis: Lovenox Nutrition: Regular diet PT: Yes LP and CSF analysis, performed completed MRI brain MRI spine vitamin b12 level restart im and po b12 MRI of the head, lumbar puncture completed Continue PT treatment Date of Service: May 27, 2025 Billing Provider: TEETEE CAMPOS MD Common Visit Codes: [id number] INP/OBS CARE(HIGH) TEETEE CAMPOS MD May 27, 2025 17:12
[2025-05-27 18:00] VITALS: BP 89/41; PULSE 96; RESP 15; TEMP 98.7; O2SAT 98
[2025-05-27 22:00] VITALS: BP 94/47; PULSE 75; RESP 16; TEMP 98.4; O2SAT 98
[2025-05-28 05:43] LABS: MEAN PLATELET VOLUME 7.1 FL (7.4-10.4); RED CELL DISTRIBUTION WIDTH 18.1 % (11.5-14.5)
[2025-05-28 06:00] VITALS: BP 95/49; PULSE 86; RESP 14; TEMP 98.9; O2SAT 100
[2025-05-28 06:01] LABS: CREATININE 0.31 MG/DL (0.40-0.90); TOTAL CARBON DIOXIDE 29.2 MMOL/L (24-32); eCRCL 204 ML/MIN; eGFR > 90 ML/MIN
[2025-05-28 06:15] LABS: BANDS% (MANUAL) 1.0 % (0-10); EOSINOPHILS % (MANUAL) 3.0 % (0-6); LYMPHOCYTES % (MANUAL) 50.0 % (21-51); MONOCYTES % (MANUAL) 9.0 % (2-12); MYELOCYTES % (MANUAL) 1.0 % (0-0); NEUTROPHILS % (MANUAL) 35.0 % (42-75); REACTIVE LYMPHOCYTES % 1.0 % (0-0)
[2025-05-28 06:16] LABS: PLATELET ESTIMATE NORMAL
[2025-05-28 08:39] VITALS: RESP 14; O2SAT 100
[2025-05-28] MEDS: midodrine 5mg tablet PO SCH (09:19)
[2025-05-28 10:00] VITALS: BP 94/50; PULSE 80; RESP 16; TEMP 99; O2SAT 98
--- NOTE | 2025-05-28 16:34 | PROGRESS NOTE ---
Daily Progress Note Providers to CC ~ feels better today better sleep better appetite Central Line/PICC still needed: No Rojas-Non Protocol Rojas Indications Met/Not Met: F/C Indications Not Met Antibiotic Timeout Antibiotic Ordered?: Yes MRSA Education MRSA Education Provided to pt: Yes Subjective As above Objective Vital Signs Date Time Temp Pulse Resp B/P (MAP) Pulse Ox O2 Delivery O2 Flow Rate FiO2 05/28/25 10:00 99.0 80 16 94/50 (65) 98 Room Air 05/26/25 20:00 0.0 Vital signs, stable ,afebrile. Pulse Oximetry reflects adequate oxygenation. General: well developed, well nourished. Awake , alert, and oriented x4, resting comfortably in the bed, in no acute distress . Skin: Warm, dry, no pallor, no rash or petechiae. HEENT: Atraumatic, normocephalic, EOMI, anicteric sclera B; pink conjunctiva; PERRLA, normal oropharynx, moist oral and nasal mucosa. Tympanic membrane , nose , throat clear. Neck: Trachea midline. Supple, full range of motion, no JVD, bruit , hepatojugular reflex , lymphadenopathy or masses, or other lesions Cardiac: Regular rhythm, regular rate no murmurs, rubs, or gallops. Normal S1 and S2, no S3 noticed. PMI is normal. Respiratory: Equal breath sounds bilaterally, no tachypnea; lungs clear to auscultation bilaterally, no wheezing ,rub or rales, or crackles. Chest wall is symmetric and without deformity. No signs of trauma. Chest wall is nontender. No signs of respiratory distress. Resonance is normal upon percussion bilaterally. Gastrointestinal: Abdomen symmetric, non-distended, soft, non-tender, normal bowel sounds x4 quadrant, normoactive, no hepatosplenomegaly , no masses , no bruit, no flank pain bilaterally. No voluntary guarding, rebound, or rigidity. No tenderness to percussion. No pulsatile masses. Equal femoral pulses. No Londono's sign or McBurney point tenderness. Back; no CVA tenderness bilaterally, no deformities. Neck and back are without deformity as well. No tenderness noted on palpation of the spinous processes. Spinous processes are midline. Cervical, thoracic, and lumbar paraspinal muscles are not tender and are without spasm. Musculoskeletal: Extremities, normal range of motion, non-tender, muscle strength 5/5 x 4. Negative Homans signs bilaterally on lower extremity. Distal pulses full symmetrical, no clubbing, cyanosis , edema. Neurological: Speech is clear, alert, and oriented x 4. No motor or sensory deficit, deep tendon reflexes normal, cerebellar intact. Cranial nerves II-XII intact. Psych: Alert and or appropriate, normal affect. Vascular: Good distal pulses, which are equal x4; capillary refill less than 2 seconds. Lymphatic, no lymphadenopathy. 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 cyanocobalamin 200 mcg once daily -physical therapy Chronic amphetamine abuse including currently, Acute amphetamine intoxication Chronic alcohol abuse including currently Acute alcohol intoxication Alcohol withdrawal syndrome History of vaping History of cannabis use -patient is counseled regarding the harmful effects of vaping Mild hypokalemia -K-3.4 -replacement per protocol Code Status: Full code Line/tube: PIV DVT prophylaxis: Lovenox Nutrition: Regular diet PT: Yes LP and CSF analysis, performed completed MRI brain MRI spine vitamin b12 level restart im and po b12 MRI of the head, lumbar puncture completed Continue PT treatment Awaiting placement , possible to rehab facility Sepsis Screening Reassessment Date: May 28, 2025 Date of Service: May 28, 2025 Billing Provider: TEETEE CAMPOS MD Common Visit Codes: [id number] INP/OBS CARE(HIGH) TEETEE CAMPOS MD May 28, 2025 16:34
[2025-05-28 18:00] VITALS: BP 92/41; PULSE 67; RESP 16; TEMP 98.1; O2SAT 99
[2025-05-28 22:00] VITALS: BP 88/51; PULSE 64; RESP 14; TEMP 96.4; O2SAT 93
[2025-05-28 23:31] VITALS: BP 90/53; PULSE 79
[2025-05-29 02:00] VITALS: TEMP 98.9; O2SAT 100
[2025-05-29 06:00] VITALS: BP 105/57; PULSE 95; RESP 16; TEMP 98.9; O2SAT 100
[2025-05-29 08:30] VITALS: RESP 18
[2025-05-29 09:02] LABS: MEAN PLATELET VOLUME 6.4 FL (7.4-10.4); RED CELL DISTRIBUTION WIDTH 17.9 % (11.5-14.5)
[2025-05-29 09:18] LABS: CREATININE 0.40 MG/DL (0.40-0.90); TOTAL CARBON DIOXIDE 28.6 MMOL/L (24-32); eCRCL 158 ML/MIN; eGFR > 90 ML/MIN
[2025-05-29 10:00] VITALS: BP 100/57; PULSE 83; RESP 14; TEMP 98.4; O2SAT 96
[2025-05-29] MEDS ORDERED: GABA-530 PO (14:26)
--- NOTE | 2025-05-29 18:25 | DISCHARGE SUMMARY ---
Discharge Summary Providers to CC ~ Discharge Summary Admission Diagnosis: B/L LE WEAKNESS Hospital Course DATE OF ADMISSION: May 23, 2025 DATE OF DISCHARGE: May 29, 2025 CBC testing done on May 29, 2025 WBC 6.7 hemoglobin 11.3 hematocrit 33.6 platelet count 402 sed rate 9. Procalcitonin 0.05, CMP done on May 29, 2025 sodium 142 potassium 3.5 normal renal function calcium 8.5 alkaline phosphatase 120 mildly elevated rest of the liver enzymes unremarkable. Vitamin B12 326, folate 18.4, TSH 2.01, hemoglobin A1c 5.4. CSF culture showed no WBC no growth after three days Patient had lumbar puncture, thoracic spine MRI, head MRI, lumbar spine MRI, cervical spine MRI done during hospitalization. Please see the details and final results in electronic health records. 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 amphetamine abuse including currently, Acute amphetamine intoxication Operations\Procedures: None Consultants: Dr Anshul Hidalgo, psychiatry consultation Complications: None Condition on DC: Stable New Medications: Gabapentin (Gabapentin) 100 Mg Capsule 1 CAP PO Q8H for 30 Days, #90 CAP 0 Refills Continued Medications: Docusate Sodium (Docusate Sodium) 100 Mg Capsule 1 CAP PO BID Lidocaine (Ztlido) 1.8 % Adh..patch 1 PATCH TOP DAILY Olanzapine (Olanzapine) 2.5 Mg Tablet 2.5 PO HS Pantoprazole Sodium (Protonix) 20 Mg Tablet.dr 2 TAB PO DAILY Thiamine Hcl (Vitamine B-1) 100 Mg Tablet 1 TAB PO DAILY Discontinued Medications: Baclofen (Baclofen) 10 Mg Tablet 1 TAB PO TID Gabapentin (Neurontin) 300 Mg Capsule 300 CAP PO TID Hydroxyzine Hcl* (Atarax*) 25 Mg Tablet 2 TAB PO QID PRN for for anxiety/agitation for 30 Days, #60 TAB Discharge Summary: 19-year-old female with 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 cyanocobalamin 200 mcg once daily -physical therapy Chronic amphetamine abuse including currently, Acute amphetamine intoxication Chronic alcohol abuse including currently Acute alcohol intoxication Alcohol withdrawal syndrome History of vaping History of cannabis use -patient is counseled regarding the harmful effects of vaping Mild hypokalemia -K-3.4 -replacement per protocol Code Status: Full code Line/tube: PIV DVT prophylaxis: Lovenox Nutrition: Regular diet PT: Yes Patient is feeling better she has been afebrile and getting discharged home in stable condition. Patient is able to ambulate 300 feet using walker . Patient is seen and examined on the day of discharge. All labs, diagnostic workup and discharge plan discussed with patient in detail before her discharge. All questions and queries answered to the best of my professional medical knowledge. I heard patient's concerns and address appropriately. Patient was cleared by Physical therapy team for home discharge . manager track involved in patient's discharge plan. Discharge instructions provided to the patient. Please follow- up with PCP/ [facility] in outpatient setting in 1-2 weeks. Provide fall precautions documents. Patient needs physical therapy in outpatient setting for gait disorder. VERY Strongly advised to stop using nitrous oxide and risks explained General-patient not in any acute distress, alert awake oriented, chronically ill-appearing/age-appropriate/looks comfortable/lethargic HEENT-atraumatic normocephalic, neck supple without elevated JVD, no thyromegaly or carotid bruit. No lymphadenopathy bilaterally. Eyes-no icterus or pallor seen in eyes Chest-clear to auscultation bilaterally, breathing nonlabored no tachypnea, no wheezing, no crepitation, no crackles. Heart-S1-S2 normal, regular heart rate no murmur Abdomen bowel sounds positive on auscultation, soft nondistended nontender no guarding, no rigidity Skin no active skin rash/signs of chronic hyperpigmentation present over lower extremity Neurology-grossly intact, nonfocal alert awake oriented Extremity- no pedal edema able to move all 4 extremities, ambulated Psychiatry - patient is not confused or agitated cooperated during physical examination *Problems/Diagnosis: (1) Nitrous oxide user Status: Acute Total Time Spent on D/C: > 30 Minutes Date of Service: May 29, 2025 Billing Provider: BRYAN RICCI MD Common Visit Codes: 45360-WTR/OBS DISCH DAY >30min BRYAN RICCI MD May 29, 2025 18:18
== END 2025-05-29 15:33 | disposition home or self-care (01) | DRG 816 ==
LOC: ER 22:12 → ED HOLD 05-23 00:03 → ORTHO 4S 05-23 07:08
PROVIDERS: ADMIT Internal Medicine; ATTEND Family Medicine
PROC: 009U3ZX Drainage of Spinal Canal, Percutaneous Approach, Diagnostic (ICD-10-PCS; principal; 2025-05-25)
PROC: B01B1ZZ Fluoroscopy of Spinal Cord using Low Osmolar Contrast (ICD-10-PCS; 2025-05-25)
DX: T59.0X1A Toxic effect of nitrogen oxides, accidental (unintentional), initial encounter (principal); G82.50 Quadriplegia, unspecified; G32.0 Subacute combined degeneration of spinal cord in diseases classified elsewhere; F31.9 Bipolar disorder, unspecified; F41.9 Anxiety disorder, unspecified; F15.129 Other stimulant abuse with intoxication, unspecified; F43.10 Post-traumatic stress disorder, unspecified; F17.290 Nicotine dependence, other tobacco product, uncomplicated; E87.6 Hypokalemia; N39.0 Urinary tract infection, site not specified; F10.129 Alcohol abuse with intoxication, unspecified; Y92.89 Other specified places as the place of occurrence of the external cause
CPT/HCPCS: 36415; 62328; 70551; 72141; 72146; 72148; 80053; 80061; 80305; 81001; 82607; 82746; 82945; 82948; 83036; 84145; 84157; 84443; 84703; 85007; 85025; 85651; 87015; 87070; 87081; 89051; 97110; 97116; 97161; 97530; 99285; A6258; G0378; J0696; J2405; J3360; J3420; J7040; J7050; J7120; Q0177